=== PATIENT | female | born 1960 | race Caucasian/White ===

== ENCOUNTER 2017-06-28 08:21 | Emergency (ER) | payer BC ==
[2017-06-28] MEDS ORDERED: Ketorolac 30 MG/ML SDV IVPUSH ONE (08:22)
[2017-06-28] MEDS ORDERED: Sodium Chloride 0.9% 1,000 ML IV ONE (08:22)
[2017-06-28] MEDS ORDERED: Ondansetron 4 MG/2 ML SDV IVPUSH ONE (08:22)
--- NOTE | 2017-06-28 08:23 | EDM.PDOC ---
ED HPI GENERAL MEDICAL PROBLEM - General Stated Complaint: PAIN ON SIDE Time Seen by Provider: 06/28/17 08:23 Source of Information: Reports: Patient - History of Present Illness INITIAL COMMENTS - FREE TEXT/NARRATIVE: HISTORY AND PHYSICAL: History of present illness: [Patient presents with a chief complaint of right hip tenderness rates 20 out of 10, she is in no distress generally on hydrocodone but has been out over the last week , she has followed with Dr. micha mp who has scheduled for a steroid injection on July 01 with the orthopedist, x-ray was performed on Thursday and is on file. her hip pain is improved by weightbearing and dressed but is described as constant She has a secondary complaint of vague abdominal pain and states she is vomiting repeatedly throughout the day however she has had no vomiting episodes while here in the emergency room but her is present with her at this time No fever chills sweats no chest pain shortness breath headache dizziness or palpitation no bowel or urine symptoms Review of systems: As per history of present illness and below otherwise all systems reviewed and negative. Past medical history: As per history of present illness and as reviewed below otherwise noncontributory. Surgical history: As per history of present illness and as reviewed below otherwise noncontributory. Social history: No reported history of drug or alcohol abuse. Family history: As per history of present illness and as reviewed below otherwise noncontributory. Physical exam: HEENT: Atraumatic, normocephalic, pupils reactive, negative for conjunctival pallor or scleral icterus, mucous membranes moist, throat clear, neck supple, nontender, trachea midline. Lungs: Clear to auscultation, breath sounds equal bilaterally, chest nontender. Heart: S1S2, regular, negative for clicks, rubs, or JVD. Abdomen: Soft, nondistended, nontender. Negative for masses or hepatosplenomegaly. Negative for costovertebral tenderness. Pelvis: Stable nontender. Genitourinary: Deferred. Rectal: Deferred. Extremities: Atraumatic, negative for cords or calf pain. Neurovascular unremarkable. Neuro: Awake, alert, oriented. Cranial nerves II through XII unremarkable. Cerebellum unremarkable. Motor and sensory unremarkable throughout. Exam nonfocal. Diagnostics: [CBC CMP troponin lipase UA EKG ] Therapeutics: [1 L normal saline bolus Zofran 8 mg IV Toradol 30 mg IV Morphine 1 mg IV Hydrocodone No. 20 Phenergan ] Impression: Hip pain on right Chronic history baseline ] Definitive disposition and diagnosis as appropriate pending reevaluation and review of above. right hip Pain Score (Numeric/FACES): 10 - Related Data Allergies Allergy/AdvReac Type Severity Reaction Status Date / Time Penicillins Allergy Rash Verified 06/28/17 08:29 Home Meds: Home Meds Budesonide/Formoterol Fumarate [Symbicort 160-4.5 Mcg Inhaler] 2 puff IH BID 08/10 [History] DULoxetine [Cymbalta] 120 mg PO DAILY 06/28/17 [History] Hydrocodone/Acetaminophen [Hydrocodon-Acetaminophn 10-325] 1 tab PO BID PRN 08/10 [History] Ipratropium/Albuterol Sulfate [Iprat-Albut 0.5-3(2.5) MG/3 ML] 3 ml IH QID PRN 06/28/17 [History] Levothyroxine [Synthroid] 50 mcg PO ACBREAKFAST 06/28/17 [History] Pantoprazole Sodium [Protonix] 20 mg PO DAILY 06/28/17 [History] Promethazine [Phenergan] 25 mg PO Q4H PRN 06/28/17 [History] Rosuvastatin Calcium 20 mg PO DAILY 06/28/17 [History] risperiDONE 2 mg PO BEDTIME 06/28/17 [History] ED ROS GENERAL - Review of Systems Review Of Systems: ROS reveals no pertinent complaints other than HPI. ED EXAM, GENERAL - Physical Exam Exam: See Below Course - Vital Signs Last Recorded V/S: Last Vital Signs Temp 97.5 F 06/28/17 08:30 Pulse 65 06/28/17 08:30 Resp 20 06/28/17 08:30 BP 155/69 H 06/28/17 08:30 Pulse Ox 98 06/28/17 08:30 - Orders/Labs/Meds Orders: Active Orders 24 hr Category Date Time Status EKG Documentation Completion [RC] STAT Care 06/28/17 08:23 Active Abdomen Pelvis w Cont [CT] Stat Exams 06/28/17 08:26 Taken UA W/MICROSCOPIC [URIN] Stat Lab 06/28/17 08:42 Ordered Labs: Laboratory Tests 06/28/17 06/28/17 06/28/17 Range/Units 08:30 08:30 08:30 WBC 12.70 H (4.0-11.0) K/uL RBC 4.65 (4.30-5.90) M/uL Hgb 15.3 (12.0-16.0) g/dL Hct 42.5 (36.0-46.0) % MCV 91.4 (80.0-98.0) fL MCH 32.9 H (27.0-32.0) pg MCHC 36.0 (31.0-37.0) g/dL RDW Std Deviation 43.2 (28.0-62.0) fl RDW Coeff of Jenna 13 (11.0-15.0) % Plt Count 298 (150-400) K/uL MPV 8.70 (7.40-12.00) fL Neut % (Auto) 76.4 (48.0-80.0) % Lymph % (Auto) 13.7 L (16.0-40.0) % [place] % (Auto) 9.4 (0.0-15.0) % Eos % (Auto) 0.4 (0.0-7.0) % Baso % (Auto) 0.1 (0.0-1.5) % Neut # (Auto) 9.7 H (1.4-5.7) K/uL Lymph # (Auto) 1.7 (0.6-2.4) K/uL [place] # (Auto) 1.2 H (0.0-0.8) K/uL Eos # (Auto) 0.1 (0.0-0.7) K/uL Baso # (Auto) 0.0 (0.0-0.1) K/uL Nucleated RBC % 0.0 /100WBC Nucleated RBCs # 0 K/uL ESR 8 (0-29) mm/hr Sodium 134 L (136-145) mmol/L Potassium 3.2 L (3.5-5.1) mmol/L Chloride 97 L (98-107) mmol/L Carbon Dioxide 23.7 (21.0-32.0) mmol/L BUN 11 (7.0-18.0) mg/dL Creatinine 0.8 (0.6-1.0) mg/dL Est Cr Clr Drug Dosing 73.51 mL/min Estimated GFR (MDRD) > 60.0 ml/min Glucose 117 H (74-106) mg/dL Calcium 9.2 (8.5-10.1) mg/dL Total Bilirubin 0.7 (0.2-1.0) mg/dL AST 25 (15-37) IU/L ALT 33 (14-63) IU/L Alkaline Phosphatase 65 (46-116) U/L Troponin I < 0.050 (0.000-0.056) ng/mL C-Reactive Protein (0.00-0.90) mg/dL Total Protein 7.1 (6.4-8.2) g/dL Albumin 3.7 (3.4-5.0) g/dL Globulin 3.4 (2.0-3.5) g/dL Albumin/Globulin Ratio 1.1 L (1.3-2.8) Lipase 276 (73-393) U/L Urine Color Urine Appearance Urine pH (5.0-8.0) Ur Specific [place] (1.001-1.035) Urine Protein (NEGATIVE) mg/dL Urine Glucose (UA) (NEGATIVE) mg/dL Urine Ketones (NEGATIVE) mg/dL Urine Occult Blood (NEGATIVE) Urine Nitrite (NEGATIVE) Urine Bilirubin (NEGATIVE) Urine Ictotest Urine Urobilinogen (<2.0) EU/dL Ur Leukocyte Esterase (NEGATIVE) Urine RBC (0-2/HPF) Urine WBC (0-5/HPF) Ur Epithelial Cells (NONE-FEW) Urine Bacteria (NEGATIVE) Urine Mucus (NONE-MOD) 06/28/17 06/28/17 Range/Units 08:30 08:42 WBC (4.0-11.0) K/uL RBC (4.30-5.90) M/uL Hgb (12.0-16.0) g/dL Hct (36.0-46.0) % MCV (80.0-98.0) fL MCH (27.0-32.0) pg MCHC (31.0-37.0) g/dL RDW Std Deviation (28.0-62.0) fl RDW Coeff of Jenna (11.0-15.0) % Plt Count (150-400) K/uL MPV (7.40-12.00) fL Neut % (Auto) (48.0-80.0) % Lymph % (Auto) (16.0-40.0) % [place] % (Auto) (0.0-15.0) % Eos % (Auto) (0.0-7.0) % Baso % (Auto) (0.0-1.5) % Neut # (Auto) (1.4-5.7) K/uL Lymph # (Auto) (0.6-2.4) K/uL [place] # (Auto) (0.0-0.8) K/uL Eos # (Auto) (0.0-0.7) K/uL Baso # (Auto) (0.0-0.1) K/uL Nucleated RBC % /100WBC Nucleated RBCs # K/uL ESR (0-29) mm/hr Sodium (136-145) mmol/L Potassium (3.5-5.1) mmol/L Chloride (98-107) mmol/L Carbon Dioxide (21.0-32.0) mmol/L BUN (7.0-18.0) mg/dL Creatinine (0.6-1.0) mg/dL Est Cr Clr Drug Dosing mL/min Estimated GFR (MDRD) ml/min Glucose (74-106) mg/dL Calcium (8.5-10.1) mg/dL Total Bilirubin (0.2-1.0) mg/dL AST (15-37) IU/L ALT (14-63) IU/L Alkaline Phosphatase (46-116) U/L Troponin I (0.000-0.056) ng/mL C-Reactive Protein <0.20 (0.00-0.90) mg/dL Total Protein (6.4-8.2) g/dL Albumin (3.4-5.0) g/dL Globulin (2.0-3.5) g/dL Albumin/Globulin Ratio (1.3-2.8) Lipase (73-393) U/L Urine Color YELLOW Urine Appearance SLT CLOUDY Urine pH 7.0 (5.0-8.0) Ur Specific [place] 1.020 (1.001-1.035) Urine Protein 30 (NEGATIVE) mg/dL Urine Glucose (UA) NEGATIVE (NEGATIVE) mg/dL Urine Ketones 15 H (NEGATIVE) mg/dL Urine Occult Blood NEGATIVE (NEGATIVE) Urine Nitrite NEGATIVE (NEGATIVE) Urine Bilirubin MODERATE H (NEGATIVE) Urine Ictotest NEGATIVE Urine Urobilinogen 1.0 (<2.0) EU/dL Ur Leukocyte Esterase NEGATIVE (NEGATIVE) Urine RBC 0-1 (0-2/HPF) Urine WBC 0-2 (0-5/HPF) Ur Epithelial Cells FEW (NONE-FEW) Urine Bacteria FEW (NEGATIVE) Urine Mucus LIGHT (NONE-MOD) Meds: Medications Discontinued Medications Generic Name Dose Route Start Last Admin Trade Name Hellen PRN Reason Stop Dose Admin Sodium Chloride 1,000 mls @ 999 mls/hr 06/28/17 08:22 06/28/17 09:00 Normal Saline IV 06/28/17 09:22 999 mls/hr STAT ONE Administration Iopamidol 100 ml 06/28/17 09:56 06/28/17 09:57 Isovue Multipack-370 (76%) IVPUSH 06/28/17 09:57 100 ml ONETIME STA Administration Ketorolac Tromethamine 30 mg 06/28/17 08:22 06/28/17 09:04 Toradol IVPUSH 06/28/17 08:23 30 mg ONETIME ONE Administration Ondansetron HCl 8 mg 06/28/17 08:22 06/28/17 09:01 Zofran IVPUSH 06/28/17 08:23 8 mg ONETIME ONE Administration Departure - Departure Time of Disposition: 10:39 Disposition: Home, Self-Care 01 Condition: Good Clinical Impression: Hip pain, Abdominal pain - Discharge Information Additional Instructions: Medication as prescribed Return if symptoms persist or worsen Follow-up with orthopedist as scheduled on July 01 You have a small reducible hernia on your abdomen, follow with general surgery call for appointment for evaluation and treatment at number below [facility] Professional [address], [address] [address] my orthopedic [facility] - General Surgery Professional [address], [address] [address] The following information is given to patients seen in the emergency department who are being discharged to home. This information is to outline your options for follow-up care. We provide all patients seen in our emergency department with a follow-up referral. The need for follow-up, as well as the timing and circumstances, are variable depending upon the specifics of your emergency department visit. If you don't have a primary care physician on staff, we will provide you with a referral. We always advise you to contact your personal physician following an emergency department visit to inform them of the circumstance of the visit and for follow-up with them and/or the need for any referrals to a consulting specialist. The emergency department will also refer you to a specialist when appropriate. This referral assures that you have the opportunity for follow-up care with a specialist. All of these measure are taken in an effort to provide you with optimal care, which includes your follow-up. Under all circumstances we always encourage you to contact your private physician who remains a resource for coordinating your care. When calling for follow-up care, please make the office aware that this follow-up is from your recent emergency room visit. If for any reason you are refused follow-up, please contact the [facility] emergency department at and asked to speak to the emergency department charge nurse. - My Orders Last 24 Hours: My Active Orders 06/28/17 08:23 EKG Documentation Completion [RC] STAT 06/28/17 08:26 Abdomen Pelvis w Cont [CT] Stat 06/28/17 08:42 UA W/MICROSCOPIC [URIN] Stat - Assessment/Plan Last 24 Hours: My Active Orders 06/28/17 08:23 EKG Documentation Completion [RC] STAT 06/28/17 08:26 Abdomen Pelvis w Cont [CT] Stat 06/28/17 08:42 UA W/MICROSCOPIC [URIN] Stat
[2017-06-28 08:59] LABS: CHLORIDE,CL 97 mmol/L (98-107); SODIUM,NA 134 mmol/L (136-145)
[2017-06-28] MEDS ORDERED: Iopamidol 755 MG/ML 200 ML Multipack Bottle IVPUSH STA (09:56)
[2017-06-28] MEDS ORDERED: Morphine 4 MG/ML Syringe IVPUSH ONE (10:41)
--- NOTE | 2017-06-29 11:28 | CT ---
EXAM DATE: 06/28/17 PATIENT'S AGE: 57 Patient: EDWAR DUARTE Facility: [place], [place] Site . Site : 1960 Study: CT Abdomen/Pelvis [id number] 9:55:17 AM Ordering Physician: Doctor Rm Final Report: INDICATION: abd pain, nausea, right hip pain TECHNIQUE: Helical scans obtained through the abdomen and pelvis after administration of 100 cc of Isovue-370 intravenously. COMPARISON: None. FINDINGS: 1. Mild diffuse fatty change in the liver. The liver is prominent measuring 20 cm cephalocaudad, extending down to the right iliac crest. No focal hepatic lesions. 2. Gallbladder is surgically absent. Bile ducts are normal caliber. 3. Small ventral hernia containing fat tissue measuring 1.5 cm in diameter located 9 cm superior to the umbilicus. 4. Spleen, adrenals, pancreas and kidneys are normal. No urinary tract calculi or hydronephrosis. Bladder is unremarkable. 5. Lipomatous ileocecal valve. Normal appendix. The remainder of the bowel is unremarkable. 6. Uterus and adnexal regions are within normal limits. 7. Mild spurring in the thoracolumbar spine. No fractures or destructive bony lesions. IMPRESSION: 1. Fatty liver. 2. Small ventral hernia in the upper abdomen containing mesenteric fat. 3. Other incidental findings as mentioned above. Dictated by Hardeep Marte MD @ 06/28/2017 10:12:34 AM Dictated by: Hardeep Marte MD @ 06/28/2017 10:12:41 (Electronic Signature) Report Signed by Proxy. MAC
== END 2017-06-28 11:06 | disposition home or self-care (01) ==
LOC: MW.ED 08:21
DX: M25.551 Pain in right hip (principal); R10.9 Unspecified abdominal pain; Z88.0 Allergy status to penicillin; Z79.899 Other long term (current) drug therapy
CPT/HCPCS: 36415; 74177; 80053; 81001; 83690; 84484; 85025; 85652; 86140; 93005; 96361; 96374; 96375; 99284; J1885; J2270; J2405; J7040; Q9967; 99283

== ENCOUNTER 2017-07-23 09:32 | Day surgery (SDC) | payer BC ==
[~2017-07-23 09:32] MED LIST: Lactated Ringers 1,000 ML IV SCH; Lidocaine 2% 5 ML SDV ONE; Propofol 200 MG/20 ML SDV ONE; Sodium Chloride 0.9% 10 ML Syringe FLUSH PRN; Sodium Chloride 0.9% 2.5 ML Syringe FLUSH PRN; fentaNYL 100 MCG/2 ML SDV ONE
[2017-07-23] MEDS ORDERED: Midazolam 1 MG/ML 2 ML SDV ONE (10:35)
--- NOTE | 2017-07-23 10:35 | PCM.PREANE ---
Preanesthetic Assessment - Anesthesia/Transfusion/Family Hx Anesthesia History: Prior Anesthesia Without Reaction Family History of Anesthesia Reaction: No Transfusion History: No Prior Transfusion(s) Intubation History: Unknown - Review of Systems General: No Symptoms Pulmonary: No Symptoms Cardiovascular: No Symptoms Gastrointestinal: No Symptoms, Other (h/o colon polyps) Neurological: No Symptoms Other: Reports: None - Physical Assessment O2 Sat by Pulse Oximetry: 95 Respiratory Rate: 16 Vital Signs: Last Vital Signs Temp 36.5 C 07/23/17 09:40 Pulse 79 07/23/17 09:40 Resp 16 07/23/17 09:40 BP 140/83 07/23/17 09:40 Pulse Ox 95 07/23/17 09:40 Height: 1.68 m Weight: 82.1 kg ASA Class: 3 Mental Status: Alert & Oriented x3 Airway Class: Mallampati = 2 Dentition: Reports: Bridge (left upper (back)) Thyro-Mental Finger Breadths: 3 Mouth Opening Finger Breadths: 3 ROM/Head Extension: Full Lungs: Clear to Auscultation, Normal Respiratory Effort Cardiovascular: Regular Rate, Regular Rhythm - Allergies Allergies/Adverse Reactions: Allergies Allergy/AdvReac Type Severity Reaction Status Date / Time Penicillins Allergy Rash Verified 07/17/17 14:26 - Blood Blood Available: No - Anesthesia Plan Pre-Op Medication Ordered: None - Acknowledgements Anesthesia Type Planned: MAC Pt an Appropriate Candidate for the Planned Anesthesia: Yes Alternatives and Risks of Anesthesia Discussed w Pt/Guardian: Yes Pt/Guardian Understands and Agrees with Anesthesia Plan: Yes PreAnesthesia Questionnaire HEENT History: Reports: Other (See Below) Other HEENT History: wears glasses, has upper partial permanent retainer Cardiovascular History: Reports: High Cholesterol Respiratory History: Reports: COPD (moderate) Other Respiratory History: uses Symbicort inhaler BID Gastrointestinal History: Reports: Colon Polyp, GERD, Other (See Below) Other Gastrointestinal History: fatty liver, just diagnosed with a ventral hernia Musculoskeletal History: Reports: Back Pain, Chronic, Other (See Below) (right hip bursitis) Psychiatric History: Reports: Anxiety, Depression, Suicide Attempt Endocrine/Metabolic History: Reports: Hypothyroidism - Infectious Disease History Infectious Disease History: Reports: None - Past Surgical History GI Surgical History: Reports: Cholecystectomy, Colonoscopy Musculoskeletal Surgical History: Reports: Arthroscopic Knee (with meniscectomy) Other Musculoskeletal Surgeries/Procedures:: knee surgery , left - SUBSTANCE USE Smoking Status *Q: Current Every Day Smoker (1 ppd) Tobacco Use Within Last Twelve Months: Cigarettes Recreational Drug Use History: No - HOME MEDS Home Medications: Home Meds Budesonide/Formoterol Fumarate [Symbicort 160-4.5 Mcg Inhaler] 2 puff IH BID 08/10 [History] DULoxetine [Cymbalta] 60 mg PO BID 06/28/17 [History] Hydrocodone/Acetaminophen [Hydrocodon-Acetaminophn 10-325] 1 tab PO BID PRN 08/10 [History] Levothyroxine [Synthroid] 50 mcg PO ACBREAKFAST 06/28/17 [History] Pantoprazole Sodium [Protonix] 20 mg PO DAILY 06/28/17 [History] Rosuvastatin Calcium 20 mg PO DAILY 06/28/17 [History] risperiDONE 2 mg PO BEDTIME 06/28/17 [History] - CURRENT (IN HOUSE) MEDS Current Meds: Current Medications Lactated Ringer's (Ringers, Lactated) 1,000 mls @ 125 mls/hr IV ASDIRECTED LUIS Last Admin: 07/23/17 09:40 Dose: 125 mls/hr Sodium Chloride (Saline Flush) 10 ml FLUSH ASDIRECTED PRN PRN Reason: Keep Vein Open Sodium Chloride (Saline Flush) 2.5 ml FLUSH ASDIRECTED PRN PRN Reason: Keep Vein Open Sodium Chloride (Saline Flush) 10 ml FLUSH ASDIRECTED PRN PRN Reason: Keep Vein Open Sodium Chloride (Saline Flush) 2.5 ml FLUSH ASDIRECTED PRN PRN Reason: Keep Vein Open Discontinued Medications Fentanyl (Sublimaze) Confirm Administered Dose 100 mcg .ROUTE .STK-MED ONE Stop: 07/23/17 09:30 Lidocaine (Xylocaine-Mpf 2%) Confirm Administered Dose 5 ml .ROUTE .STK-MED ONE Stop: 07/23/17 09:30 Propofol (Diprivan 20 Ml) Confirm Administered Dose 400 mg .ROUTE .STK-MED ONE Stop: 07/23/17 09:30
[2017-07-23] MEDS ORDERED: Propofol 200 MG/20 ML SDV ONE (11:34)
--- NOTE | 2017-07-23 11:51 | PCM.PRGIU ---
Upper GI Endoscopy Procedure Intervention:: Reports: Biopsy Performed By:: Jenny Nascimento Date of Service:: 07/23/17 Indications:: Reports: Dysphagia Sedation:: Reports: IV Depth reached:: Reports: Gastric Cavity - Findings Hiatal Hernia:: Reports: Other Hiatal Hernia Comments:: Type 1 Hiatal Hernia - Interventions Cauterization:: Reports: None Foreign body removal:: Reports: None Complications:: Reports: None Cultures:: Reports: None
--- NOTE | 2017-07-23 11:53 | PCM.PRGIL ---
Lower GI Endoscopy Procedure Procedure:: Reports: Colonoscopy Procedure Comments:: Rectum to Cecum time was 6 minutes. Normal Colonoscopy. Performed By:: Jenny Nascimento Date of Service:: 07/23/17 Informed Consent Obtained?: Yes Rectodigital Exam:: Reports: Normal Exam, Normal Rectal Tone Sedation:: Reports: IV Depth Reached (Location):: Reports: Cecum Landmarks:: Reports: Cecum - Findings Rectal:: Reports: Normal Hemorrhoids:: Reports: None Condyloma:: Reports: None Colitis (Location):: Reports: None Polyps (location):: Reports: None Mass (Location):: Reports: None Stenosis (Location):: Reports: None Complications:: Reports: None Cultures:: Reports: None
--- NOTE | 2017-07-23 12:02 | PCM.POSTAN ---
POST ANESTHESIA ASSESSMENT - MENTAL STATUS Mental Status: Alert, Oriented - RESPIRATORY Respiratory Status: Respiratory Rate WNL, Airway Patent, O2 Saturation Stable - CARDIOVASCULAR CV Status: Pulse Rate WNL, Blood Pressure Stable - GASTROINTESTINAL GI Status: No Symptoms - PAIN Pain Score: 0 - POST OP HYDRATION Hydration Status: Adequate & Stable
--- NOTE | 2017-07-24 00:49 | OR ---
SURGEON: ZIA VALENTINE MD DATE OF PROCEDURE: 07/23/2017 PREOPERATIVE DIAGNOSES: Nausea and vomiting, history of colon polyps. POSTOPERATIVE DIAGNOSES: Hiatal hernia, normal colonoscopy. PROCEDURE PERFORMED: Diagnostic EGD and colonoscopy. INSTRUMENT USED: Olympus endoscope, Olympus colonoscope. EXTENT OF EXAM: To the second portion of the duodenum, to the cecum. PREPARATION: Good. LIMITATIONS: None. INDICATION FOR EXAMINATION: The patient is a 57-year-old female, who recently presented to the emergency room with epigastric pain, nausea, and vomiting. A workup was completed, that showed a small incisional hernia, but no other cause of her pain. The patient does complain of reflux. She has a history of colon polyps and is overdue for a repeat colonoscopy. We discussed the need for diagnostic EGD and colonoscopy. The patient and I discussed the procedures as well as expected perioperative course. We discussed the risks including bleeding, infection, or damage to surrounding structures including perforation. The patient verbalized understanding and wishes to proceed. PROCEDURE IN DETAIL: The patient was brought into the endoscopy suite and placed in the left lateral decubitus position. A time-out was completed verifying the patient's name, age, date of , allergies, and procedure to be performed. A bite-block was placed in the patient's mouth and monitored anesthesia care induced. Continuous oxygen was provided via nasal cannula throughout the procedure. After adequate sedation was achieved, a well lubricated endoscope was placed in the patient's mouth and advanced under direct visualization to the second portion of the duodenum. This appeared normal and a photograph was taken. The scope was then fully withdrawn while examining the color, texture, anatomy, and integrity of the mucosa of the upper GI tract. The patient's duodenum appeared to be free of pathology. The scope was then brought into the stomach and a photograph was taken of the pylorus. This appeared normal. The scope was then retroflexed and then noted the patient to have a small to moderate-sized hiatal hernia. A photograph was taken of this. The remainder of the gastric mucosa appeared normal. Biopsies were taken of the gastric antrum, body, and fundus and sent for H. pylori testing and histologic review. The scope was then brought into the distal esophagus. A photograph was taken of the hiatal hernia sac. A photograph was then taken again of the Z-line. The distal esophageal mucosa was free of inflammation or any evidence of ulceration or dysplasia. The remainder of the esophagus was normal. The scope was removed from the patient and this portion of procedure terminated. A digital rectal exam was performed. This exam was within normal limits. A well lubricated colonoscope was inserted in the rectum and advanced under direct visualization to the level of the cecum. The cecum was identified by both visual and anatomic landmarks. A photograph was taken of the cecal cap as well as with the scope in a retroflexed position. The scope was then fully withdrawn while examining the color, texture, anatomy, and integrity of the mucosa from the cecum to the anal canal. The patient was found to have normal colonic mucosa. The scope was brought into the rectum and retroflexed to allow visualization of the anal canal opening and a photograph was taken. This appeared normal. The scope was then straightened out and withdrawn from the patient. The cecum to anus time was 6 minutes. The patient tolerated the procedures well and was transferred to the PACU in stable condition. ENDOSCOPIC DIAGNOSIS: Hiatal hernia. RECOMMENDATIONS: We will follow up with the patient in clinic in 2 weeks. NEVAEH CASTELLON /[id number]
== END 2017-07-23 12:15 | disposition home or self-care (01) ==
LOC: MW.SDS 09:32
PROVIDERS: ATTEND Surgery
DX: R10.13 Epigastric pain (principal); K58.2 Mixed irritable bowel syndrome; K43.9 Ventral hernia without obstruction or gangrene; K44.9 Diaphragmatic hernia without obstruction or gangrene; K76.0 Fatty (change of) liver, not elsewhere classified; K21.9 Gastro-esophageal reflux disease without esophagitis; J44.9 Chronic obstructive pulmonary disease, unspecified; E78.00 Pure hypercholesterolemia, unspecified; E87.6 Hypokalemia; E03.9 Hypothyroidism, unspecified; G89.29 Other chronic pain; M51.36 Other intervertebral disc degeneration, lumbar region; F41.8 Other specified anxiety disorders; T14.91XA Suicide attempt, initial encounter; F17.210 Nicotine dependence, cigarettes, uncomplicated; Z79.899 Other long term (current) drug therapy; Z98.890 Other specified postprocedural states; Z86.010 Personal history of colon polyps
CPT/HCPCS: J2250; J2704; J3010; J7120

== ENCOUNTER 2019-04-04 10:29 | Observation (INO) | payer BC ==
[2019-04-04] MEDS ORDERED: Sodium Chloride 0.9% 10 ML Syringe FLUSH PRN (10:54)
[2019-04-04] MEDS ORDERED: Sodium Chloride 0.9% 2.5 ML Syringe FLUSH PRN (10:54)
[2019-04-04] MEDS ORDERED: Sodium Chloride 0.9% 10 ML SDV IV PRN (10:54)
[2019-04-04] MEDS ORDERED: Meclizine 25 MG Tab PO ONE (10:56)
--- NOTE | 2019-04-04 10:56 | EDM.PDOC ---
ED HPI GENERAL MEDICAL PROBLEM - General Chief Complaint: Neurological Problem Stated Complaint: DIZZY/SICK Time Seen by Provider: 04/04/19 10:52 Source of Information: Reports: Patient History Limitations: Reports: No Limitations - History of Present Illness INITIAL COMMENTS - FREE TEXT/NARRATIVE: She is a 59-year-old female who has numerous vague complaints. Patient is complaining she is having trouble speaking but cannot specify when this started. Patient has her eyes closed and is complained to me that the room is spinning. She denied this earlier to nursing staff. She denies any focal weakness. She is complaining of head pressure which she rates as 8 out of 10 intensity. Patient is feeling nauseous but has had no vomiting. She denies having previously similar symptoms. She denies drinking alcohol though her breath has a odor similar to alcohol. Duration: Day(s): (4) Location: Reports: Head Quality: Reports: Ache, Throbbing Severity: Moderate Improves with: Reports: None Worsens with: Reports: Eating Associated Symptoms: Reports: Malaise, Nausea/Vomiting. Denies: Confusion, Chest Pain, Cough, Shortness of Breath - Related Data Allergies Allergy/AdvReac Type Severity Reaction Status Date / Time Penicillins Allergy Rash Verified 04/04/19 13:47 Home Meds: Home Meds Budesonide/Formoterol Fumarate [Symbicort 160-4.5 Mcg Inhaler] 2 puff IH BID 08/10 [History] DULoxetine [Cymbalta] 60 mg PO BID 06/28/17 [History] Hydrocodone/Acetaminophen [Hydrocodon-Acetaminophn 10-325] 1 tab PO BID PRN 08/10 [History] Levothyroxine [Synthroid] 50 mcg PO ACBREAKFAST 06/28/17 [History] Pantoprazole Sodium [Protonix] 20 mg PO DAILY 06/28/17 [History] Rosuvastatin Calcium 20 mg PO DAILY 06/28/17 [History] risperiDONE 2 mg PO BEDTIME 06/28/17 [History] Pregabalin [Lyrica] 1 tab PO BID 04/04/19 [History] metFORMIN [Glucophage XR] 750 mg PO DAILY 04/04/19 [History] Meclizine [Antivert] 25 mg PO DAILY PRN #15 tab 04/05/19 [Rx] Ondansetron [Zofran ODT] 4 mg PO Q6H PRN #15 tab.dis 04/05/19 [Rx] Past Medical History HEENT History: Reports: Other (See Below) Other HEENT History: wears glasses, has upper partial permanent retainer Cardiovascular History: Reports: High Cholesterol Respiratory History: Reports: COPD (moderate) Other Respiratory History: uses Symbicort inhaler BID Gastrointestinal History: Reports: Colon Polyp, GERD, Other (See Below) Other Gastrointestinal History: fatty liver, just diagnosed with a ventral hernia Musculoskeletal History: Reports: Back Pain, Chronic, Other (See Below) (right hip bursitis) Psychiatric History: Reports: Anxiety, Depression, Suicide Attempt Endocrine/Metabolic History: Reports: Hypothyroidism - Infectious Disease History Infectious Disease History: Reports: None - Past Surgical History GI Surgical History: Reports: Cholecystectomy Social & Family History - Family History Family Medical History: Noncontributory ED ROS GENERAL - Review of Systems Review Of Systems: Comprehensive ROS is negative, except as noted in HPI. ED EXAM, NEURO - Physical Exam Exam: See Below General Appearance: Alert, Other (Patient at times is listless) Head Exam: Atraumatic, Normocephalic Neck: Normal Inspection, Supple, Non-Tender, Full Range of Motion Respiratory/Chest: No Respiratory Distress, Lungs Clear, Normal Breath Sounds Cardiovascular: Regular Rate, Rhythm, No Edema, No JVD. No: JVD GI/Abdominal: Normal Bowel Sounds, Soft, Non-Tender, No Organomegaly Neurological: Alert, CN II-XII Intact Extremities: Normal Inspection Psychiatric: Depressed Mood Skin Exam: Warm, Dry, Intact Course - Vital Signs Text/Narrative:: Patient CT of her head and lab work are unremarkable. Patient is presenting she has having vertigo I am concerned she might have a posterior cerebellar stroke. Patient will be admitted and have an MRI scan prior to her being discharged. informs me she has had this several episodes where she is not able to stand is uncertain whether this is vertiginous or possibly due to an arrhythmia. Hospitalist is aware and they will continue her work-up and she will be admitted to telemetry. Last Recorded V/S: Last Vital Signs Temp 36.9 C 04/05/19 08:00 Pulse 92 04/05/19 08:00 Resp 16 04/05/19 08:00 BP 128/75 04/05/19 08:00 Pulse Ox 95 04/05/19 08:00 - Orders/Labs/Meds Labs: Laboratory Tests 04/04/19 04/04/19 04/04/19 Range/Units 10:58 10:58 11:42 WBC 12.71 H (4.0-11.0) K/uL RBC 5.16 (4.30-5.90) M/uL Hgb 16.4 H (12.0-16.0) g/dL Hct 46.2 H (36.0-46.0) % MCV 89.5 (80.0-98.0) fL MCH 31.8 (27.0-32.0) pg MCHC 35.5 (31.0-37.0) g/dL RDW Std Deviation 44.3 (28.0-62.0) fl RDW Coeff of Jenna 14 (11.0-15.0) % Plt Count 411 H (150-400) K/uL MPV 9.10 (7.40-12.00) fL Neut % (Auto) 66.9 (48.0-80.0) % Lymph % (Auto) 23.4 (16.0-40.0) % [place] % (Auto) 7.4 (0.0-15.0) % Eos % (Auto) 2.0 (0.0-7.0) % Baso % (Auto) 0.3 (0.0-1.5) % Neut # (Auto) 8.5 H (1.4-5.7) K/uL Lymph # (Auto) 3.0 H (0.6-2.4) K/uL [place] # (Auto) 0.9 H (0.0-0.8) K/uL Eos # (Auto) 0.3 (0.0-0.7) K/uL Baso # (Auto) 0.0 (0.0-0.1) K/uL Nucleated RBC % 0.0 /100WBC Nucleated RBCs # 0 K/uL INR 0.99 APTT 28.4 (18.6-31.3) SEC Sodium 136 (136-145) mmol/L Potassium 4.1 (3.5-5.1) mmol/L Chloride 100 (98-107) mmol/L Carbon Dioxide 26.9 (21.0-32.0) mmol/L BUN 20 H (7.0-18.0) mg/dL Creatinine 0.7 (0.6-1.0) mg/dL Est Cr Clr Drug Dosing 82.01 mL/min Estimated GFR (MDRD) > 60.0 ml/min Glucose 102 (74-106) mg/dL Calcium 9.7 (8.5-10.1) mg/dL Total Bilirubin 0.3 (0.2-1.0) mg/dL AST 16 (15-37) IU/L ALT 30 (14-63) IU/L Alkaline Phosphatase 103 (46-116) U/L Troponin I < 0.050 (0.000-0.056) ng/mL Total Protein 7.5 (6.4-8.2) g/dL Albumin 3.8 (3.4-5.0) g/dL Globulin 3.7 (2.6-4.0) g/dL Albumin/Globulin Ratio 1.0 (0.9-1.6) TSH 3rd Generation 2.70 (0.36-3.74) uIU/mL Ethyl Alcohol <3 mg/dL Meds: Medications Discontinued Medications Generic Name Dose Route Start Last Admin Trade Name Freq PRN Reason Stop Dose Admin Acetaminophen 650 mg 04/04/19 13:07 Tylenol PO Q4H PRN Pain (Mild 1-3)/fever Albuterol 2.5 mg 04/04/19 13:07 Proventil Neb Soln NEB Q2H PRN Shortness Of Breath/wheezing Enoxaparin Sodium 40 mg 04/04/19 13:15 04/04/19 13:50 Lovenox SUBCUT 40 mg Q24H LUIS Administration Gadobenate Dimeglumine 20 ml 04/04/19 14:32 04/04/19 16:11 Multihance IVPUSH 04/04/19 14:33 Not Given ONETIME STA Sodium Chloride 1,000 mls @ 150 mls/hr 04/04/19 13:15 04/04/19 21:13 Normal Saline IV 04/05/19 19:54 150 mls/hr CONTINUOUS LUIS Administration Ibuprofen 600 mg 04/04/19 13:07 Motrin PO Q6H PRN Pain (mild 1-3) Meclizine HCl 25 mg 04/04/19 10:56 02/10/20 11:09 Antivert PO 04/04/19 10:57 25 mg ONETIME ONE Administration Nicotine 21 mg 04/04/19 13:15 04/04/19 13:48 Habitrol TRDERM 21 mg DAILY LUIS Administration Ondansetron HCl 4 mg 04/04/19 13:07 Zofran Odt PO Q4H PRN nausea, able to take PO Ondansetron HCl 4 mg 04/04/19 13:07 04/04/19 15:12 Zofran IVPUSH 4 mg Q4H PRN Administration Nausea Budesonide/ 0 each 04/04/19 21:00 04/04/19 21:16 Formoterol 160-4.5 INH Not Given Mcg/Puff 6 Gm BID LUIS Inhaler Duloxetine 60 Mg Cap 1 each 04/04/19 21:00 04/04/19 21:16 PO 1 each BID LUIS Administration Levothyroxine 50 Mcg 1 each 04/05/19 07:30 04/05/19 07:02 Tab PO Not Given ACBREAKFAST LUIS Pantoprazole Sodium 1 each 04/05/19 09:00 [Protonix] 20 Mg PO DAILY LUIS Risperidone 2 Mg Tab 1 each 04/04/19 21:00 04/04/19 21:15 PO 1 each BEDTIME LUIS Administration Rosuvastatin 20 Mg 1 each 04/05/19 09:00 Tab PO DAILY LUIS Sodium Chloride 10 ml 04/04/19 10:54 04/04/19 11:09 Saline Flush FLUSH 10 ml ASDIRECTED PRN Administration Keep Vein Open Sodium Chloride 2.5 ml 04/04/19 10:54 04/04/19 11:09 Saline Flush FLUSH 2.5 ml ASDIRECTED PRN Administration Keep Vein Open Sodium Chloride 10 ml 04/04/19 10:54 Normal Saline IV ASDIRECTED PRN IV Use Temazepam 15 mg 04/04/19 18:17 Restoril PO BEDTIME PRN Insomnia Departure - Departure Time of Disposition: 12:30 ( admitted 04/04/2019) Disposition: Refer to Observation Condition: Good Clinical Impression: Vertigo, Near syncope, CVA (cerebral vascular accident) - Discharge Information Sepsis Event Note - Evaluation Sepsis Screening Result: No Definite Risk - Focused Exam Date Exam was Performed: 04/05/19 Time Exam was Performed: 13:00
--- NOTE | 2019-04-04 11:03 | CT ---
INDICATION: Stroke code. COMPARISON: None. TECHNIQUE: CT of the head stroke protocol without IV contrast. Coronal and sagittal reconstructions are provided. FINDINGS: No intracranial hemorrhage, mass effect, or evidence of acute infarct. No midline shift. No abnormal extra-axial fluid collections. Normal caliber ventricular system. Orbits and extraocular muscles are symmetric. Paranasal sinuses and mastoid air cells are clear. No acute fracture. Soft tissues are unremarkable. IMPRESSION: : No acute intracranial findings. Please note that all CT scans at this facility use dose modulation, iterative reconstruction, and/or weight-based dosing when appropriate to reduce radiation dose to as low as reasonably achievable. Dictated by Mariya Valles MD @ Apr 04 2019 10:58AM Signed by Dr. Mariya Valles @ Apr 04 2019 11:02AM
[2019-04-04 12:21] LABS: BLOOD UREA NITROGEN,BUN 20 mg/dL (7.0-18.0); CARBON DIOXIDE,CO2 26.9 mmol/L (21.0-32.0); CHLORIDE,CL 100 mmol/L (98-107); GLUCOSE RANDOM 102 mg/dL (74-106); POTASSIUM,K 4.1 mmol/L (3.5-5.1); SODIUM,NA 136 mmol/L (136-145)
[2019-04-04] MEDS ORDERED: Ondansetron 4 MG Tab.DIS PO PRN (13:07)
[2019-04-04] MEDS ORDERED: Albuterol 0.083% 2.5 MG/3 ML Neb Soln NEB PRN (13:07)
[2019-04-04] MEDS ORDERED: Acetaminophen 325 MG Tab PO PRN (13:07)
[2019-04-04] MEDS ORDERED: Ondansetron 4 MG/2 ML SDV IVPUSH PRN (13:07)
[2019-04-04] MEDS ORDERED: Ibuprofen 600 MG Tab PO PRN (13:07)
[2019-04-04] MEDS ORDERED: Enoxaparin 40 MG/0.4 ML Syringe SUBCUT SCH (13:15)
[2019-04-04] MEDS ORDERED: Nicotine 21 MG/24 Hr Patch TRDERM SCH (13:15)
[2019-04-04] MEDS: Sodium Chloride 0.9% 1,000 ML IV SCH ×2 (13:26→21:13)
--- NOTE | 2019-04-04 13:28 | PCM.HP.2 ---
Addendum entered and electronically signed by David Kevin MD 04/04 15:47: UPDATE: PATIENT CHANGED HER MIND AND WOULD LIKE TO STAY OVERNIGHT. I SPOKE WITH PATIENT AND INFORMED HER THAT SHE NEEDS TO MAKE UP HER MIND IF SHE IS STAYING OR LEAVING. SHE HAS DECIDED TO STAY. Addendum entered and electronically signed by David Kevin MD 04/04 15:33: Discharge Summary: Patient left AMA few hours later. She was not able to tolerate full length of MRI. MRI Brain did not show stroke. Neck MRA unable to get since patient did not tolerate full length of imaging. She decided to leave AMA after I spoke with her directly. Original Note: <David Kevin - Last Filed: 04/04/19 14:02> H&P History of Present Illness - General Date of Service: 04/04/19 Admit Problem/Dx: Admission Diagnosis/Problem Admission Diagnosis/Problem Vertigo - History of Present Illness Initial Comments - Free Text/Narative: 59 y/o female with PMH hypothyroidism, depression, prediabetes who presented to the ER complaining of numbness around her lips, nausea. Stroke code was called but CT head negative. No other neurological deficits. When I evaluated, patient stated that she has been feeling nauseous for the past 3-4 days. Denies feeling dizzy, however, per ER she had positive horizontal nystagmus. Son states that she has not been herself. Having her eyes closed and sleeping more than usual. In addition, she endorses some numbness around her lips. No resolved. Denies fevers, headaches. No vomiting, abdominal pain, dyspnea, dysuria, diarrhea. She does smoke 1 ppd. Occasional alcohol. No recent sick contacts. State she has not eaten due to nausea. Feels hungry and would like to smoke. No history of migraines. - Related Data Allergies/Adverse Reactions: Allergies Allergy/AdvReac Type Severity Reaction Status Date / Time Penicillins Allergy Rash Verified 04/04/19 13:47 Home Medications: Home Meds Budesonide/Formoterol Fumarate [Symbicort 160-4.5 Mcg Inhaler] 2 puff IH BID 08/10 [History] DULoxetine [Cymbalta] 60 mg PO BID 06/28/17 [History] Hydrocodone/Acetaminophen [Hydrocodon-Acetaminophn 10-325] 1 tab PO BID PRN 08/10 [History] Levothyroxine [Synthroid] 50 mcg PO ACBREAKFAST 06/28/17 [History] Pantoprazole Sodium [Protonix] 20 mg PO DAILY 06/28/17 [History] Rosuvastatin Calcium 20 mg PO DAILY 06/28/17 [History] risperiDONE 2 mg PO BEDTIME 06/28/17 [History] Pregabalin [Lyrica] 1 tab PO BID 04/04/19 [History] metFORMIN [Glucophage XR] 750 mg PO DAILY 04/04/19 [History] Meclizine [Antivert] 25 mg PO DAILY PRN #15 tab 04/05/19 [Rx] Ondansetron [Zofran ODT] 4 mg PO Q6H PRN #15 tab.dis 04/05/19 [Rx] Past Medical History HEENT History: Reports: Other (See Below) Other HEENT History: wears glasses, has upper partial permanent retainer Cardiovascular History: Reports: High Cholesterol Respiratory History: Reports: COPD Other Respiratory History: uses Symbicort inhaler BID Gastrointestinal History: Reports: Colon Polyp, GERD, Other (See Below) Other Gastrointestinal History: fatty liver, just diagnosed with a ventral hernia Genitourinary History: Reports: None EGG PROCESSOR History: Reports: None Musculoskeletal History: Reports: Back Pain, Chronic, Other (See Below) Neurological History: Reports: None Psychiatric History: Reports: Anxiety, Depression, Suicide Attempt Endocrine/Metabolic History: Reports: Hypothyroidism Hematologic History: Reports: None Immunologic History: Reports: None Oncologic (Cancer) History: Reports: None Dermatologic History: Reports: None - Infectious Disease History Infectious Disease History: Reports: None - Past Surgical History Head Surgeries/Procedures: Reports: None HEENT Surgical History: Reports: None Cardiovascular Surgical History: Reports: None Respiratory Surgical History: Reports: None GI Surgical History: Reports: Cholecystectomy Female Surgical History: Reports: None Endocrine Surgical History: Reports: None Neurological Surgical History: Reports: None Musculoskeletal Surgical History: Reports: None Oncologic Surgical History: Reports: None Dermatological Surgical History: Reports: None Social & Family History - Family History Family Medical History: Noncontributory - Tobacco Use Smoking Status *Q: Current Every Day Smoker Years of Tobacco use: 45 Packs/Tins Daily: 1.5 - Caffeine Use Caffeine Use: Reports: Coffee, Soda - Recreational Drug Use Recreational Drug Use: No H&P Review of Systems - Review of Systems: Review Of Systems: Comprehensive ROS is negative, except as noted in HPI. Exam - Exam Exam: See Below - Vital Signs Vital Signs: Last Vital Signs Temp 35.3 C 04/04/19 10:39 Pulse 66 04/04/19 12:25 Resp 17 04/04/19 12:25 BP 144/89 H 04/04/19 12:25 Pulse Ox 93 L 04/04/19 12:25 Weight: 90.718 kg - Exam General: Alert, Oriented, Cooperative HEENT: Conjunctiva Clear, Hearing Intact, Posterior Pharynx Clear, Pupils Equal , Pupils Reactive. No: Mucosa Moist & [place] Neck: Supple, Full Range of Motion Lungs: Clear to Auscultation, Normal Respiratory Effort. No: Crackles, Wheezing Cardiovascular: Regular Rate, Regular Rhythm GI/Abdominal Exam: Normal Bowel Sounds, Soft, Non-Tender, No Distention Back Exam: Vertebral Tenderness Extremities: Normal Inspection, No Pedal Edema Skin: Warm, Dry Neurological: Cranial Nerves Intact Neuro Extensive - Mental Status: Alert, Oriented x3 Neuro Extensive - Motor, Sensory, Reflexes: CN II-XII Intact - Patient Data Lab Results Last 24 hrs: Laboratory Results - last 24 hr 04/04/19 04/04/19 04/04/19 Range/Units 10:58 10:58 11:42 WBC 12.71 H (4.0-11.0) K/uL RBC 5.16 (4.30-5.90) M/uL Hgb 16.4 H (12.0-16.0) g/dL Hct 46.2 H (36.0-46.0) % MCV 89.5 (80.0-98.0) fL MCH 31.8 (27.0-32.0) pg MCHC 35.5 (31.0-37.0) g/dL RDW Std Deviation 44.3 (28.0-62.0) fl RDW Coeff of Jenna 14 (11.0-15.0) % Plt Count 411 H (150-400) K/uL MPV 9.10 (7.40-12.00) fL Neut % (Auto) 66.9 (48.0-80.0) % Lymph % (Auto) 23.4 (16.0-40.0) % [place] % (Auto) 7.4 (0.0-15.0) % Eos % (Auto) 2.0 (0.0-7.0) % Baso % (Auto) 0.3 (0.0-1.5) % Neut # (Auto) 8.5 H (1.4-5.7) K/uL Lymph # (Auto) 3.0 H (0.6-2.4) K/uL [place] # (Auto) 0.9 H (0.0-0.8) K/uL Eos # (Auto) 0.3 (0.0-0.7) K/uL Baso # (Auto) 0.0 (0.0-0.1) K/uL Nucleated RBC % 0.0 /100WBC Nucleated RBCs # 0 K/uL INR 0.99 APTT 28.4 (18.6-31.3) SEC Sodium 136 (136-145) mmol/L Potassium 4.1 (3.5-5.1) mmol/L Chloride 100 (98-107) mmol/L Carbon Dioxide 26.9 (21.0-32.0) mmol/L BUN 20 H (7.0-18.0) mg/dL Creatinine 0.7 (0.6-1.0) mg/dL Est Cr Clr Drug Dosing 82.01 mL/min Estimated GFR (MDRD) > 60.0 ml/min Glucose 102 (74-106) mg/dL Calcium 9.7 (8.5-10.1) mg/dL Total Bilirubin 0.3 (0.2-1.0) mg/dL AST 16 (15-37) IU/L ALT 30 (14-63) IU/L Alkaline Phosphatase 103 (46-116) U/L Troponin I < 0.050 (0.000-0.056) ng/mL Total Protein 7.5 (6.4-8.2) g/dL Albumin 3.8 (3.4-5.0) g/dL Globulin 3.7 (2.6-4.0) g/dL Albumin/Globulin Ratio 1.0 (0.9-1.6) TSH 3rd Generation 2.70 (0.36-3.74) uIU/mL Ethyl Alcohol <3 mg/dL Result Diagrams: 04/04/19 10:58 04/04/19 11:42 Sepsis Event Note - Evaluation Sepsis Screening Result: No Definite Risk - Focused Exam Vital Signs: Vital Signs Temp Pulse Resp BP Pulse Ox 04/04/19 12:25 66 17 144/89 H 93 L 04/04/19 12:15 69 18 135/85 97 04/04/19 11:45 68 120/80 98 04/04/19 10:39 35.3 C 100 18 141/83 H 100 Date Exam was Performed: 04/04/19 Time Exam was Performed: 14:02 Problem List Initiated/Reviewed/Updated: Yes Orders Last 24hrs: Active Orders 24 hr Category Date Time Status Admission Status [Patient Status] [ADT] Stat ADT 04/04/19 12:50 Active Assess Neurological Status [RC] Q8HR Care 04/04/19 10:54 Active Bedrest [RC] ASDIRECTED Care 04/04/19 10:54 Active Blood Glucose Check, Bedside [RC] ONETIME Care 04/04/19 10:54 Active Blood Glucose Check, Bedside [RC] TIDMEALS Care 04/04/19 13:07 Active Cardiac Monitoring [RC] . DIRECTED Care 04/04/19 10:54 Active EKG 12 Lead [EKG Documentation Completion] [RC] ROUTINE Care 04/04/19 10:51 Active EKG Documentation Completion [RC] STAT Care 04/04/19 10:54 Active Height and Weight [RC] UPON Care 04/04/19 10:54 Active Initiate Acute Stroke Protocol [RC] STAT Care 04/04/19 10:54 Active Intake and Output [RC] QSHIFT Care 04/04/19 13:07 Active NIH Stroke Scale [RC] ASDIRECTED Care 04/04/19 10:54 Active Nursing Bedside Swallow Screen [RC] ASDIRECTED Care 04/04/19 10:54 Active Oxygen Therapy [RC] ASDIRECTED Care 04/04/19 10:54 Active Oxygen Therapy [RC] PRN Care 04/04/19 13:07 Active RT Aerosol Therapy [RC] ASDIRECTED Care 04/04/19 13:09 Active Stroke Education, General [RC] Click to Edit Care 04/04/19 10:54 Active Up With Assistance [RC] ASDIRECTED Care 04/04/19 13:07 Active VTE/DVT Education [RC] PER UNIT ROUTINE Care 04/04/19 13:07 Active Vital Signs [RC] Q4H Care 04/04/19 13:07 Active PT Evaluation and Treatment [CONS] Routine Cons 04/04/19 13:07 Active Regular Diet [DIET] Diet 04/04/19 Lunch Active Ang Head w Cont [MR] Urgent Exams 04/04/19 13:13 Ordered Ang Neck w Cont [MR] Urgent Exams 04/04/19 13:13 Ordered Brain w wo Cont [MR] Urgent Exams 04/04/19 13:13 Ordered BASIC METABOLIC PANEL,BMP [CHEM] AM Lab 04/05/19 05:11 Ordered CBC WITH AUTO DIFF [HEME] AM Lab 04/05/19 05:11 Ordered UA RFX SHLOMO AND CULT IF INDIC [URIN] Routine Lab 04/04/19 13:25 Ordered Acetaminophen [Tylenol] Med 04/04/19 13:07 Active 650 mg PO Q4H PRN Albuterol [Proventil Neb Soln] Med 04/04/19 13:07 Active 2.5 mg NEB Q2H PRN Enoxaparin [Lovenox] Med 04/04/19 13:15 Active 40 mg SUBCUT Q24H Ibuprofen [Motrin] Med 04/04/19 13:07 Active 600 mg PO Q6H PRN Nicotine [Habitrol] Med 04/04/19 13:15 Active 21 mg TRDERM DAILY Ondansetron [Zofran ODT] Med 04/04/19 13:07 Active 4 mg PO Q4H PRN Ondansetron [Zofran] Med 04/04/19 13:07 Active 4 mg IVPUSH Q4H PRN Sodium Chloride 0.9% [Normal Saline] 1,000 ml Med 04/04/19 13:15 Active IV CONTINUOUS Sodium Chloride 0.9% [Saline Flush] Med 04/04/19 10:54 Active 10 ml FLUSH ASDIRECTED PRN Sodium Chloride 0.9% [Saline Flush] Med 04/04/19 10:54 Active 2.5 ml FLUSH ASDIRECTED PRN Peripheral IV Insertion Adult [OM.PC] Stat Oth 04/04/19 10:54 Ordered Peripheral IV Insertion Adult [OM.PC] Stat Oth 04/04/19 10:54 Ordered Resuscitation Status Stat Resus Stat 04/04/19 10:54 Ordered Medication Orders Acetaminophen (Tylenol) 650 mg PO Q4H PRN PRN Reason: Pain (Mild 1-3)/fever Albuterol (Proventil Neb Soln) 2.5 mg NEB Q2H PRN PRN Reason: Shortness Of Breath/wheezing Enoxaparin Sodium (Lovenox) 40 mg SUBCUT Q24H LUIS Sodium Chloride (Normal Saline) 1,000 mls @ 150 mls/hr IV CONTINUOUS LUIS Stop: 04/05/19 19:54 Ibuprofen (Motrin) 600 mg PO Q6H PRN PRN Reason: Pain (mild 1-3) Nicotine (Habitrol) 21 mg TRDERM DAILY LUIS Ondansetron HCl (Zofran Odt) 4 mg PO Q4H PRN PRN Reason: nausea, able to take PO Ondansetron HCl (Zofran) 4 mg IVPUSH Q4H PRN PRN Reason: Nausea Sodium Chloride (Saline Flush) 10 ml FLUSH ASDIRECTED PRN PRN Reason: Keep Vein Open Last Admin: 04/04/19 11:09 Dose: 10 ml Sodium Chloride (Saline Flush) 2.5 ml FLUSH ASDIRECTED PRN PRN Reason: Keep Vein Open Last Admin: 04/04/19 11:09 Dose: 2.5 ml Assessment/Plan Comment:: A: 1. Nausea 2. facial numbness 3. PMH dyslipidemia, hypothyroidism, tobacco abuse P: 1. facial numbness- not sure about etiology. Will check for influenza and get a UA. In addition, will get MRI brain, neck to further evaluate for any ischemic etiology due to suspected vertigo symptoms. Added Zofran PRN for nausea. Will start maintenance fluids NS 150 ml/hr. Regular diet as tolerated. Will get PT for vestibular/vertigo evaluation and treatment. 2. PMH hypothyroidism, prediabetes, chronic pain- will continue home medications. dispo: likely dc tomorrow. <Мария Mckeon - Last Filed: 04/05/19 20:15> H&P History of Present Illness - General Admit Problem/Dx: Admission Diagnosis/Problem Admission Diagnosis/Problem Vertigo Exam - Vital Signs Vital Signs: Last Vital Signs Temp 36.9 C 04/05/19 08:00 Pulse 92 02/11/20 08:00 Resp 16 04/05/19 08:00 BP 128/75 04/05/19 08:00 Pulse Ox 95 04/05/19 08:00 - Patient Data Lab Results Last 24 hrs: Laboratory Results - last 24 hr 04/05/19 04/05/19 04/05/19 Range/Units 06:15 06:15 06:40 WBC 12.77 H (4.0-11.0) K/uL RBC 5.04 (4.30-5.90) M/uL Hgb 15.5 (12.0-16.0) g/dL Hct 46.6 H (36.0-46.0) % MCV 92.5 (80.0-98.0) fL MCH 30.8 (27.0-32.0) pg MCHC 33.3 (31.0-37.0) g/dL RDW Std Deviation 46.4 (28.0-62.0) fl RDW Coeff of Jenna 14 (11.0-15.0) % Plt Count 400 (150-400) K/uL MPV 9.00 (7.40-12.00) fL Neut % (Auto) 74.6 (48.0-80.0) % Lymph % (Auto) 17.2 (16.0-40.0) % [place] % (Auto) 6.5 (0.0-15.0) % Eos % (Auto) 1.5 (0.0-7.0) % Baso % (Auto) 0.2 (0.0-1.5) % Neut # (Auto) 9.5 H (1.4-5.7) K/uL Lymph # (Auto) 2.2 (0.6-2.4) K/uL [place] # (Auto) 0.8 (0.0-0.8) K/uL Eos # (Auto) 0.2 (0.0-0.7) K/uL Baso # (Auto) 0.0 (0.0-0.1) K/uL Nucleated RBC % 0.0 /100WBC Nucleated RBCs # 0 K/uL Sodium 146 H (136-145) mmol/L Potassium 4.3 (3.5-5.1) mmol/L Chloride 108 H (98-107) mmol/L Carbon Dioxide 29.1 (21.0-32.0) mmol/L BUN 16 (7.0-18.0) mg/dL Creatinine 0.8 (0.6-1.0) mg/dL Est Cr Clr Drug Dosing 71.76 mL/min Estimated GFR (MDRD) > 60.0 ml/min Glucose 102 (74-106) mg/dL POC Glucose 121 H (60-110) mg/dL Calcium 9.3 (8.5-10.1) mg/dL Result Diagrams: 04/05/19 06:15 04/05/19 06:15 Shlomo Results Last 24 hrs: Microbiology 04/04/19 15:09 Influenza Type A Antigen Screen - Final Nasopharyngeal Swab NEGATIVE INFLUENZA A VIRUS AG REFERENCE RANGE: NEGATIVE Influenza Type B Antigen Screen - Final NEGATIVE INFLUENZA B VIRUS AG REFERENCE RANGE: NEGATIVE Orders Last 24hrs: Active Orders 24 hr Category Date Time Status Ready for Discharge [RC] PER UNIT ROUTINE Care 04/05/19 08:22 Active Assessment/Plan Comment:: I have performed History and physical of this patient, i agree with the residents note unless specified in my note
[2019-04-04] MEDS ORDERED: Gadobenate Dimeglumine 529 MG/ML 20 ML SDV IVPUSH STA (14:32)
--- NOTE | 2019-04-04 15:22 | MR ---
MR angiogram of brain Technique: [id number] MR angiogram study was obtained centered to the [place]. Multiple MIP images were obtained in multiple projections. Findings: Distal internal carotid arteries are patent. Basilar artery is patent. Both posterior cerebral arteries appear patent. Middle cerebral arteries and anterior cerebral arteries are patent. MIP images shows some narrowing of the proximal anterior cerebral which is felt to be artifact from motion. Small size of the right A1 segment is seen and is thought to be developmental. Middle cerebral arteries are patent. No focal stenosis is otherwise seen. No discrete aneurysm is seen. Impression: 1. Small size of the right A1 segment which is thought to be developmental. 2. Slight motion artifact. 3. No additional abnormality is identified on MR angiogram study of the brain. Diagnostic code #2 This report was dictated in [place] Standard Time
[2019-04-04] MEDS ORDERED: Temazepam 15 MG Cap PO PRN (18:17)
[2019-04-04] MEDS ORDERED: Budesonide/Formoterol 160-4.5 MCG/Puff 6 GM Inhaler INH SCH (21:00)
[2019-04-04] MEDS ORDERED: DULoxetine 60 MG Cap PO SCH (21:00)
[2019-04-05] MEDS: Levothyroxine 50 MCG Tab PO SCH ×2 (06:16→07:02)
[2019-04-05 06:44] LABS: BLOOD UREA NITROGEN,BUN 16 mg/dL (7.0-18.0); CARBON DIOXIDE,CO2 29.1 mmol/L (21.0-32.0); CHLORIDE,CL 108 mmol/L (98-107); GLUCOSE RANDOM 102 mg/dL (74-106); POTASSIUM,K 4.3 mmol/L (3.5-5.1); SODIUM,NA 146 mmol/L (136-145)
--- NOTE | 2019-04-05 08:38 | PCM.DCSUM1 ---
<David Kevin - Last Filed: 04/05/19 09:08> Discharge Summary - Hospital Course Free Text/Narrative:: 59 y/o female presenting to the ER for confusion. She was accompanied by her who states she has been more confused. However, patient denies this. Per ER, she had horizontal nystagmus. CT head was negative for any intracranial hemorrhage. She was admitted for suspected TIA, confusion. She had no other neurological deficits on exam. MRI brain, neck were ordered however patient was not able to tolerate full length of MRI. MRI brain did not show any acute ischemic finding. She declined having the neck MRA performed. She was started on maintenance fluids. Next day, her symptoms had resolved. She was feeling better. She was requesting to be discharged, however, she left AMA minutes before being discharged. Likely she needed to smoke. Meclizine and zofran were sent to her pharmacy to take PRN. She was advised to follow-up with her PCP. - Discharge Data Discharge Date: 04/05/19 Discharge Disposition: Against Medical Advice 07 Condition: Stable - Referral to Home Health Primary Care Physician: Hardeep Montoya MD - Patient Summary/Data Consults: Consultations 04/04/19 13:07 PT Evaluation and Treatment [CONS] Routine - Patient Instructions Diet: Regular Diet as Tolerated Activity: As Tolerated Notify Provider of: Fever, Increased Pain, Nausea and/or Vomiting - Discharge Plan *PRESCRIPTION DRUG MONITORING PROGRAM REVIEWED*: Not Applicable *COPY OF PRESCRIPTION DRUG MONITORING REPORT IN PATIENT NATALY: Not Applicable Prescriptions/Med Rec: Meclizine [Antivert] 25 mg PO DAILY PRN #15 tab PRN Reason: Dizziness Ondansetron [Zofran ODT] 4 mg PO Q6H PRN #15 tab.dis PRN Reason: Nausea Home Medications: Home Meds Budesonide/Formoterol Fumarate [Symbicort 160-4.5 Mcg Inhaler] 2 puff IH BID 08/10 [History] DULoxetine [Cymbalta] 60 mg PO BID 06/28/17 [History] Hydrocodone/Acetaminophen [Hydrocodon-Acetaminophn 10-325] 1 tab PO BID PRN 08/10 [History] Levothyroxine [Synthroid] 50 mcg PO ACBREAKFAST 06/28/17 [History] Pantoprazole Sodium [Protonix] 20 mg PO DAILY 06/28/17 [History] Rosuvastatin Calcium 20 mg PO DAILY 06/28/17 [History] risperiDONE 2 mg PO BEDTIME 06/28/17 [History] Pregabalin [Lyrica] 1 tab PO BID 04/04/19 [History] metFORMIN [Glucophage XR] 750 mg PO DAILY 04/04/19 [History] Meclizine [Antivert] 25 mg PO DAILY PRN #15 tab 04/05/19 [Rx] Ondansetron [Zofran ODT] 4 mg PO Q6H PRN #15 tab.dis 04/05/19 [Rx] Patient Handouts: Transient Ischemic Attack, [id number] Referrals: Hardeep Montoya MD [Primary Care Provider] - 04/18/19 2:45 pm - Discharge Summary/Plan Comment DC Time >30 min.: No - Patient Data Vitals - Most Recent: Last Vital Signs Temp 36.9 C 04/05/19 08:00 Pulse 92 04/05/19 08:00 Resp 16 04/05/19 08:00 BP 128/75 04/05/19 08:00 Pulse Ox 95 04/05/19 08:00 Weight - Most Recent: 90.718 kg I&O - Last 24 hours: Intake & Output 04/04/19 04/05/19 04/05/19 22:59 06:59 14:59 Intake Total 1020 1818 Output Total 360 Balance 660 1818 Lab Results - Last 24 hrs: Laboratory Results - last 24 hr 04/04/19 04/04/19 04/04/19 Range/Units 10:58 10:58 11:42 WBC 12.71 H (4.0-11.0) K/uL RBC 5.16 (4.30-5.90) M/uL Hgb 16.4 H (12.0-16.0) g/dL Hct 46.2 H (36.0-46.0) % MCV 89.5 (80.0-98.0) fL MCH 31.8 (27.0-32.0) pg MCHC 35.5 (31.0-37.0) g/dL RDW Std Deviation 44.3 (28.0-62.0) fl RDW Coeff of Jenna 14 (11.0-15.0) % Plt Count 411 H (150-400) K/uL MPV 9.10 (7.40-12.00) fL Neut % (Auto) 66.9 (48.0-80.0) % Lymph % (Auto) 23.4 (16.0-40.0) % [place] % (Auto) 7.4 (0.0-15.0) % Eos % (Auto) 2.0 (0.0-7.0) % Baso % (Auto) 0.3 (0.0-1.5) % Neut # (Auto) 8.5 H (1.4-5.7) K/uL Lymph # (Auto) 3.0 H (0.6-2.4) K/uL [place] # (Auto) 0.9 H (0.0-0.8) K/uL Eos # (Auto) 0.3 (0.0-0.7) K/uL Baso # (Auto) 0.0 (0.0-0.1) K/uL Nucleated RBC % 0.0 /100WBC Nucleated RBCs # 0 K/uL INR 0.99 APTT 28.4 (18.6-31.3) SEC Sodium 136 (136-145) mmol/L Potassium 4.1 (3.5-5.1) mmol/L Chloride 100 (98-107) mmol/L Carbon Dioxide 26.9 (21.0-32.0) mmol/L BUN 20 H (7.0-18.0) mg/dL Creatinine 0.7 (0.6-1.0) mg/dL Est Cr Clr Drug Dosing 82.01 mL/min Estimated GFR (MDRD) > 60.0 ml/min Glucose 102 (74-106) mg/dL POC Glucose (60-110) mg/dL Calcium 9.7 (8.5-10.1) mg/dL Total Bilirubin 0.3 (0.2-1.0) mg/dL AST 16 (15-37) IU/L ALT 30 (14-63) IU/L Alkaline Phosphatase 103 (46-116) U/L Troponin I < 0.050 (0.000-0.056) ng/mL Total Protein 7.5 (6.4-8.2) g/dL Albumin 3.8 (3.4-5.0) g/dL Globulin 3.7 (2.6-4.0) g/dL Albumin/Globulin Ratio 1.0 (0.9-1.6) TSH 3rd Generation 2.70 (0.36-3.74) uIU/mL Urine Color Urine Appearance Urine pH (5.0-8.0) Ur Specific [place] (1.001-1.035) Urine Protein (NEGATIVE) mg/dL Urine Glucose (UA) (NEGATIVE) mg/dL Urine Ketones (NEGATIVE) mg/dL Urine Occult Blood (NEGATIVE) Urine Nitrite (NEGATIVE) Urine Bilirubin (NEGATIVE) Urine Urobilinogen (<2.0) EU/dL Ur Leukocyte Esterase (NEGATIVE) Ethyl Alcohol <3 mg/dL 04/04/19 04/04/19 04/05/19 Range/Units 16:00 18:19 06:15 WBC 12.77 H (4.0-11.0) K/uL RBC 5.04 (4.30-5.90) M/uL Hgb 15.5 (12.0-16.0) g/dL Hct 46.6 H (36.0-46.0) % MCV 92.5 (80.0-98.0) fL MCH 30.8 (27.0-32.0) pg MCHC 33.3 (31.0-37.0) g/dL RDW Std Deviation 46.4 (28.0-62.0) fl RDW Coeff of Jenna 14 (11.0-15.0) % Plt Count 400 (150-400) K/uL MPV 9.00 (7.40-12.00) fL Neut % (Auto) 74.6 (48.0-80.0) % Lymph % (Auto) 17.2 (16.0-40.0) % [place] % (Auto) 6.5 (0.0-15.0) % Eos % (Auto) 1.5 (0.0-7.0) % Baso % (Auto) 0.2 (0.0-1.5) % Neut # (Auto) 9.5 H (1.4-5.7) K/uL Lymph # (Auto) 2.2 (0.6-2.4) K/uL [place] # (Auto) 0.8 (0.0-0.8) K/uL Eos # (Auto) 0.2 (0.0-0.7) K/uL Baso # (Auto) 0.0 (0.0-0.1) K/uL Nucleated RBC % 0.0 /100WBC Nucleated RBCs # 0 K/uL INR APTT (18.6-31.3) SEC Sodium (136-145) mmol/L Potassium (3.5-5.1) mmol/L Chloride (98-107) mmol/L Carbon Dioxide (21.0-32.0) mmol/L BUN (7.0-18.0) mg/dL Creatinine (0.6-1.0) mg/dL Est Cr Clr Drug Dosing mL/min Estimated GFR (MDRD) ml/min Glucose (74-106) mg/dL POC Glucose 107 (60-110) mg/dL Calcium (8.5-10.1) mg/dL Total Bilirubin (0.2-1.0) mg/dL AST (15-37) IU/L ALT (14-63) IU/L Alkaline Phosphatase (46-116) U/L Troponin I (0.000-0.056) ng/mL Total Protein (6.4-8.2) g/dL Albumin (3.4-5.0) g/dL Globulin (2.6-4.0) g/dL Albumin/Globulin Ratio (0.9-1.6) TSH 3rd Generation (0.36-3.74) uIU/mL Urine Color YELLOW Urine Appearance CLEAR Urine pH 7.5 (5.0-8.0) Ur Specific [place] 1.015 (1.001-1.035) Urine Protein NEGATIVE (NEGATIVE) mg/dL Urine Glucose (UA) NEGATIVE (NEGATIVE) mg/dL Urine Ketones NEGATIVE (NEGATIVE) mg/dL Urine Occult Blood NEGATIVE (NEGATIVE) Urine Nitrite NEGATIVE (NEGATIVE) Urine Bilirubin NEGATIVE (NEGATIVE) Urine Urobilinogen 0.2 (<2.0) EU/dL Ur Leukocyte Esterase NEGATIVE (NEGATIVE) Ethyl Alcohol mg/dL 04/05/19 04/05/19 Range/Units 06:15 06:40 WBC (4.0-11.0) K/uL RBC (4.30-5.90) M/uL Hgb (12.0-16.0) g/dL Hct (36.0-46.0) % MCV (80.0-98.0) fL MCH (27.0-32.0) pg MCHC (31.0-37.0) g/dL RDW Std Deviation (28.0-62.0) fl RDW Coeff of Jenna (11.0-15.0) % Plt Count (150-400) K/uL MPV (7.40-12.00) fL Neut % (Auto) (48.0-80.0) % Lymph % (Auto) (16.0-40.0) % [place] % (Auto) (0.0-15.0) % Eos % (Auto) (0.0-7.0) % Baso % (Auto) (0.0-1.5) % Neut # (Auto) (1.4-5.7) K/uL Lymph # (Auto) (0.6-2.4) K/uL [place] # (Auto) (0.0-0.8) K/uL Eos # (Auto) (0.0-0.7) K/uL Baso # (Auto) (0.0-0.1) K/uL Nucleated RBC % /100WBC Nucleated RBCs # K/uL INR APTT (18.6-31.3) SEC Sodium 146 H (136-145) mmol/L Potassium 4.3 (3.5-5.1) mmol/L Chloride 108 H (98-107) mmol/L Carbon Dioxide 29.1 (21.0-32.0) mmol/L BUN 16 (7.0-18.0) mg/dL Creatinine 0.8 (0.6-1.0) mg/dL Est Cr Clr Drug Dosing 71.76 mL/min Estimated GFR (MDRD) > 60.0 ml/min Glucose 102 (74-106) mg/dL POC Glucose 121 H (60-110) mg/dL Calcium 9.3 (8.5-10.1) mg/dL Total Bilirubin (0.2-1.0) mg/dL AST (15-37) IU/L ALT (14-63) IU/L Alkaline Phosphatase (46-116) U/L Troponin I (0.000-0.056) ng/mL Total Protein (6.4-8.2) g/dL Albumin (3.4-5.0) g/dL Globulin (2.6-4.0) g/dL Albumin/Globulin Ratio (0.9-1.6) TSH 3rd Generation (0.36-3.74) uIU/mL Urine Color Urine Appearance Urine pH (5.0-8.0) Ur Specific [place] (1.001-1.035) Urine Protein (NEGATIVE) mg/dL Urine Glucose (UA) (NEGATIVE) mg/dL Urine Ketones (NEGATIVE) mg/dL Urine Occult Blood (NEGATIVE) Urine Nitrite (NEGATIVE) Urine Bilirubin (NEGATIVE) Urine Urobilinogen (<2.0) EU/dL Ur Leukocyte Esterase (NEGATIVE) Ethyl Alcohol mg/dL LIBBY Results - Last 24 hrs: Microbiology 04/04/19 15:09 Influenza Type A Antigen Screen - Final Nasopharyngeal Swab NEGATIVE INFLUENZA A VIRUS AG REFERENCE RANGE: NEGATIVE Influenza Type B Antigen Screen - Final NEGATIVE INFLUENZA B VIRUS AG REFERENCE RANGE: NEGATIVE Med Orders - Current: Current Medications Acetaminophen (Tylenol) 650 mg PO Q4H PRN PRN Reason: Pain (Mild 1-3)/fever Albuterol (Proventil Neb Soln) 2.5 mg NEB Q2H PRN PRN Reason: Shortness Of Breath/wheezing Enoxaparin Sodium (Lovenox) 40 mg SUBCUT Q24H PENDING SALE TO [facility] Last Admin: 04/04/19 13:50 Dose: 40 mg Ibuprofen (Motrin) 600 mg PO Q6H PRN PRN Reason: Pain (mild 1-3) Nicotine (Habitrol) 21 mg TRDERM DAILY PENDING SALE TO [facility] Last Admin: 04/04/19 13:48 Dose: 21 mg Ondansetron HCl (Zofran Odt) 4 mg PO Q4H PRN PRN Reason: nausea, able to take PO Ondansetron HCl (Zofran) 4 mg IVPUSH Q4H PRN PRN Reason: Nausea Last Admin: 04/04/19 15:12 Dose: 4 mg Budesonide/Formoterol 160-4.5 Mcg/Puff 6 Gm Inhaler 0 each INH BID PENDING SALE TO [facility] Last Admin: 04/04/19 21:16 Dose: Not Given Duloxetine 60 Mg Cap 1 each PO BID PENDING SALE TO [facility] Last Admin: 04/04/19 21:16 Dose: 1 each Levothyroxine 50 Mcg (Tab) 1 each PO ACBREAKFAST LUIS Last Admin: 04/05/19 07:02 Dose: Not Given Pantoprazole Sodium ([Protonix] 20 Mg) 1 each PO DAILY LUIS Risperidone 2 Mg Tab 1 each PO BEDTIME LUIS Last Admin: 04/04/19 21:15 Dose: 1 each Rosuvastatin 20 Mg (Tab) 1 each PO DAILY LUIS Sodium Chloride (Saline Flush) 10 ml FLUSH ASDIRECTED PRN PRN Reason: Keep Vein Open Last Admin: 04/04/19 11:09 Dose: 10 ml Sodium Chloride (Saline Flush) 2.5 ml FLUSH ASDIRECTED PRN PRN Reason: Keep Vein Open Last Admin: 04/04/19 11:09 Dose: 2.5 ml Temazepam (Restoril) 15 mg PO BEDTIME PRN PRN Reason: Insomnia Discontinued Medications Gadobenate Dimeglumine (Multihance) 20 ml IVPUSH ONETIME STA Stop: 04/04/19 14:33 Last Admin: 04/04/19 16:11 Dose: Not Given Sodium Chloride (Normal Saline) 1,000 mls @ 150 mls/hr IV CONTINUOUS LUIS Stop: 04/05/19 19:54 Last Admin: 04/04/19 21:13 Dose: 150 mls/hr Meclizine HCl (Antivert) 25 mg PO ONETIME ONE Stop: 04/04/19 10:57 Last Admin: 04/04/19 11:09 Dose: 25 mg Sodium Chloride (Normal Saline) 10 ml IV ASDIRECTED PRN PRN Reason: IV Use <Mike,Hooria - Last Filed: 04/05/19 20:16> Discharge Summary - Hospital Course Free Text/Narrative:: Patient left AMA , I agree with the residents note unless specified in my note - Referral to Home Health Primary Care Physician: Hardeep Montoya MD - Patient Summary/Data Consults: Consultations 04/04/19 13:07 PT Evaluation and Treatment [CONS] Routine - Patient Data Vitals - Most Recent: Last Vital Signs Temp 36.9 C 04/05/19 08:00 Pulse 92 04/05/19 08:00 Resp 16 04/05/19 08:00 BP 128/75 04/05/19 08:00 Pulse Ox 95 04/05/19 08:00 I&O - Last 24 hours: Intake & Output 04/05/19 04/05/19 04/05/19 06:59 14:59 22:59 Intake Total 1818 Balance 1818 Lab Results - Last 24 hrs: Laboratory Results - last 24 hr 04/05/19 04/05/19 04/05/19 Range/Units 06:15 06:15 06:40 WBC 12.77 H (4.0-11.0) K/uL RBC 5.04 (4.30-5.90) M/uL Hgb 15.5 (12.0-16.0) g/dL Hct 46.6 H (36.0-46.0) % MCV 92.5 (80.0-98.0) fL MCH 30.8 (27.0-32.0) pg MCHC 33.3 (31.0-37.0) g/dL RDW Std Deviation 46.4 (28.0-62.0) fl RDW Coeff of Jenna 14 (11.0-15.0) % Plt Count 400 (150-400) K/uL MPV 9.00 (7.40-12.00) fL Neut % (Auto) 74.6 (48.0-80.0) % Lymph % (Auto) 17.2 (16.0-40.0) % [place] % (Auto) 6.5 (0.0-15.0) % Eos % (Auto) 1.5 (0.0-7.0) % Baso % (Auto) 0.2 (0.0-1.5) % Neut # (Auto) 9.5 H (1.4-5.7) K/uL Lymph # (Auto) 2.2 (0.6-2.4) K/uL [place] # (Auto) 0.8 (0.0-0.8) K/uL Eos # (Auto) 0.2 (0.0-0.7) K/uL Baso # (Auto) 0.0 (0.0-0.1) K/uL Nucleated RBC % 0.0 /100WBC Nucleated RBCs # 0 K/uL Sodium 146 H (136-145) mmol/L Potassium 4.3 (3.5-5.1) mmol/L Chloride 108 H (98-107) mmol/L Carbon Dioxide 29.1 (21.0-32.0) mmol/L BUN 16 (7.0-18.0) mg/dL Creatinine 0.8 (0.6-1.0) mg/dL Est Cr Clr Drug Dosing 71.76 mL/min Estimated GFR (MDRD) > 60.0 ml/min Glucose 102 (74-106) mg/dL POC Glucose 121 H (60-110) mg/dL Calcium 9.3 (8.5-10.1) mg/dL LIBBY Results - Last 24 hrs: Microbiology 04/04/19 15:09 Influenza Type A Antigen Screen - Final Nasopharyngeal Swab NEGATIVE INFLUENZA A VIRUS AG REFERENCE RANGE: NEGATIVE Influenza Type B Antigen Screen - Final NEGATIVE INFLUENZA B VIRUS AG REFERENCE RANGE: NEGATIVE Med Orders - Current: Current Medications Discontinued Medications Acetaminophen (Tylenol) 650 mg PO Q4H PRN PRN Reason: Pain (Mild 1-3)/fever Albuterol (Proventil Neb Soln) 2.5 mg NEB Q2H PRN PRN Reason: Shortness Of Breath/wheezing Enoxaparin Sodium (Lovenox) 40 mg SUBCUT Q24H PENDING SALE TO [facility] Last Admin: 04/04/19 13:50 Dose: 40 mg Gadobenate Dimeglumine (Multihance) 20 ml IVPUSH ONETIME STA Stop: 04/04/19 14:33 Last Admin: 04/04/19 16:11 Dose: Not Given Sodium Chloride (Normal Saline) 1,000 mls @ 150 mls/hr IV CONTINUOUS LUIS Stop: 04/05/19 19:54 Last Admin: 04/04/19 21:13 Dose: 150 mls/hr Ibuprofen (Motrin) 600 mg PO Q6H PRN PRN Reason: Pain (mild 1-3) Meclizine HCl (Antivert) 25 mg PO ONETIME ONE Stop: 04/04/19 10:57 Last Admin: 04/04/19 11:09 Dose: 25 mg Nicotine (Habitrol) 21 mg TRDERM DAILY PENDING SALE TO [facility] Last Admin: 04/04/19 13:48 Dose: 21 mg Ondansetron HCl (Zofran Odt) 4 mg PO Q4H PRN PRN Reason: nausea, able to take PO Ondansetron HCl (Zofran) 4 mg IVPUSH Q4H PRN PRN Reason: Nausea Last Admin: 04/04/19 15:12 Dose: 4 mg Budesonide/Formoterol 160-4.5 Mcg/Puff 6 Gm Inhaler 0 each INH BID PENDING SALE TO [facility] Last Admin: 04/04/19 21:16 Dose: Not Given Duloxetine 60 Mg Cap 1 each PO BID PENDING SALE TO [facility] Last Admin: 04/04/19 21:16 Dose: 1 each Levothyroxine 50 Mcg (Tab) 1 each PO ACBREAKFAST PENDING SALE TO [facility] Last Admin: 04/05/19 07:02 Dose: Not Given Pantoprazole Sodium ([Protonix] 20 Mg) 1 each PO DAILY LUIS Risperidone 2 Mg Tab 1 each PO BEDTIME PENDING SALE TO [facility] Last Admin: 04/04/19 21:15 Dose: 1 each Rosuvastatin 20 Mg (Tab) 1 each PO DAILY LUIS Sodium Chloride (Saline Flush) 10 ml FLUSH ASDIRECTED PRN PRN Reason: Keep Vein Open Last Admin: 04/04/19 11:09 Dose: 10 ml Sodium Chloride (Saline Flush) 2.5 ml FLUSH ASDIRECTED PRN PRN Reason: Keep Vein Open Last Admin: 04/04/19 11:09 Dose: 2.5 ml Sodium Chloride (Normal Saline) 10 ml IV ASDIRECTED PRN PRN Reason: IV Use Temazepam (Restoril) 15 mg PO BEDTIME PRN PRN Reason: Insomnia
[2019-04-05] MEDS ORDERED: Rosuvastatin 20 MG Tab PO SCH (09:00)
[2019-04-05] MEDS ORDERED: Pantoprazole Sodium [Protonix] 20 MG PO SCH (09:00)
== END 2019-04-05 08:13 | disposition left against medical advice (07) ==
LOC: MW.ED 10:29 → MW.MS 12:50
PROVIDERS: ADMIT Student in an Organized Health Care Education/Training Program; ATTEND Student in an Organized Health Care Education/Training Program
DX: R11.0 Nausea (principal); R20.0 Anesthesia of skin; E78.5 Hyperlipidemia, unspecified; E78.00 Pure hypercholesterolemia, unspecified; R73.03 Prediabetes; G89.29 Other chronic pain; M54.9 Dorsalgia, unspecified; J44.9 Chronic obstructive pulmonary disease, unspecified; K21.9 Gastro-esophageal reflux disease without esophagitis; F41.9 Anxiety disorder, unspecified; E03.9 Hypothyroidism, unspecified; F32.9 Major depressive disorder, single episode, unspecified; F17.210 Nicotine dependence, cigarettes, uncomplicated; Z88.0 Allergy status to penicillin; Z79.84 Long term (current) use of oral hypoglycemic drugs; Z79.51 Long term (current) use of inhaled steroids; Z79.899 Other long term (current) drug therapy
CPT/HCPCS: 36415; 70450; 70544; 80048; 80053; 80307; 81003; 82962; 84443; 84484; 85025; 85610; 85730; 87804; 93005; 96361; 96372; 96374; 99285; A9270; G0378; J1650; J2405; J7030; 99284

== ENCOUNTER 2021-01-22 11:15 | Day surgery (SDC) | payer MEDICAID ==
--- NOTE | 2021-01-22 10:50 | PCM.PREANE ---
Preanesthetic Assessment - Procedure Proposed Procedure: Incisional hernia repair - Anesthesia/Transfusion/Family Hx Anesthesia History: Prior Anesthesia Without Reaction Family History of Anesthesia Reaction: No Transfusion History: No Prior Transfusion(s) Intubation History: Unknown - Review of Systems General: No Symptoms Pulmonary: No Symptoms (Smoker, COPD with BID MDI) Cardiovascular: No Symptoms (HLD) Gastrointestinal: No Symptoms (h/o colon polyps, GERD) Neurological: No Symptoms (Chronic back pain) Other: Reports: None, Diabetes (AODM on metformin), Liver Problems (Fatty liver), Thyroid Problems (Hypothyroid) - Physical Assessment NPO Status Date: 01/22/21 NPO Status Time: 00:05 Height: 5 ft 6 in Weight: 92.533 kg ASA Class: 3 Mental Status: Alert & Oriented x3 Airway Class: Mallampati = 3 Dentition: Reports: Normal Dentition Thyro-Mental Finger Breadths: 3 Mouth Opening Finger Breadths: 3 ROM/Head Extension: Full Lungs: Clear to Auscultation, Normal Respiratory Effort Cardiovascular: Regular Rate, Regular Rhythm - Allergies Allergies/Adverse Reactions: Allergies Allergy/AdvReac Type Severity Reaction Status Date / Time Penicillins Allergy Rash Verified 01/16/21 13:23 - Acknowledgements Anesthesia Type Planned: General Anesthesia Pt an Appropriate Candidate for the Planned Anesthesia: Yes Alternatives and Risks of Anesthesia Discussed w Pt/Guardian: Yes Pt/Guardian Understands and Agrees with Anesthesia Plan: Yes PreAnesthesia Questionnaire HEENT History: Reports: Other (See Below) Other HEENT History: wears glasses, has upper partial permanent retainer Cardiovascular History: Reports: High Cholesterol Respiratory History: Reports: COPD Other Respiratory History: uses Symbicort inhaler BID Gastrointestinal History: Reports: Colon Polyp, GERD, Other (See Below) Other Gastrointestinal History: fatty liver, just diagnosed with a ventral hernia Genitourinary History: Reports: None CAR PACKER History: Reports: None Musculoskeletal History: Reports: Back Pain, Chronic, Other (See Below) Neurological History: Reports: None Psychiatric History: Reports: Anxiety, Depression, Suicide Attempt Endocrine/Metabolic History: Reports: Hypothyroidism Other Endocrine/Metabolic History: prediabetic Hematologic History: Reports: None Immunologic History: Reports: None Oncologic (Cancer) History: Reports: None Dermatologic History: Reports: None - Infectious Disease History Infectious Disease History: Reports: None - Past Surgical History GI Surgical History: Reports: Cholecystectomy Musculoskeletal Surgical History: Reports: None - SUBSTANCE USE Tobacco Use Status *Q: Current Every Day Tobacco User Tobacco Use Within Last Twelve Months: Cigarettes - HOME MEDS Home Medications: Home Meds Budesonide/Formoterol Fumarate [Symbicort 160-4.5 Mcg Inhaler] 2 puff IH BID 06/28/17 [History] DULoxetine [Cymbalta] 120 mg PO DAILY 06/28/17 [History] Levothyroxine [Synthroid] 50 mcg PO ACBREAKFAST 06/28/17 [History] Pantoprazole Sodium [Protonix] 20 mg PO DAILY 06/28/17 [History] Rosuvastatin Calcium 20 mg PO DAILY 06/28/17 [History] metFORMIN [Glucophage XR] 500 mg PO WITHDINNER 04/04/19 [History] Hydrocodone/Acetaminophen [HYDROcodone-Acetaminophen 10-325 MG] 1 tab PO ASDIRECTED PRN 01/16/21 [History] clonazePAM [Clonazepam] 1 mg PO ASDIRECTED PRN 01/16/21 [History] risperiDONE [Risperidone] 2 mg PO BEDTIME PRN 01/16/21 [History] - CURRENT (IN HOUSE) MEDS Current Meds: Current Medications Lactated Ringer's (Ringers, Lactated) 1,000 mls @ 125 mls/hr IV ASDIRECTED LUIS Cefazolin Sodium/Dextrose 2 gm (/ Premix) 50 mls @ 100 mls/hr IV ONETIME ONE Stop: 01/22/21 11:54 Sodium Chloride (Sodium Chloride 0.9% 2.5 Ml Syringe) 2.5 ml FLUSH ASDIRECTED PRN PRN Reason: Keep Vein Open Sodium Chloride (Sodium Chloride 0.9% 20 Ml Sdv) 10 ml IV ASDIRECTED PRN PRN Reason: IV Use Sodium Chloride (Sodium Chloride 0.9% 10 Ml Syringe) 10 ml FLUSH ASDIRECTED PRN PRN Reason: Keep Vein Open Discontinued Medications Bupivacaine HCl (Bupivacaine 0.5% 30 Ml Sdv) Confirm Administered Dose 30 ml .ROUTE .STK-MED ONE Stop: 01/22/21 10:30 Octyl Cyanoacrylate (Octyl 2-Cyanoacrylate 1 Tube) Confirm Administered Dose 1 applic .ROUTE .STK-MED ONE Stop: 01/22/21 10:30
[~2021-01-22 11:15] MED LIST changes: +Bupivacaine 0.5% 30 ML SDV ONE; +Glycopyrrolate 0.2 MG/ML SDV ONE; +Ketorolac 30 MG/ML SDV ONE; +Midazolam 1 MG/ML 2 ML SDV ONE; +Octyl 2-Cyanoacrylate 1 Tube ONE; +Ondansetron 4 MG/2 ML SDV ONE; +Sodium Chloride 0.9% 20 ML SDV IV PRN
[2021-01-22] MEDS ORDERED: ceFAZolin 2 GM in Premix Bag 1 BAG IV ONE (11:25)
[2021-01-22] MEDS ORDERED: Water For Injection, Sterile 20 ML ONE (11:56)
[2021-01-22] MEDS ORDERED: ceFAZolin 1 GM Vial ONE (11:56)
--- NOTE | 2021-01-22 13:00 | PCM.OPNOTE ---
- General Post-Op/Procedure Note Date of Surgery/Procedure: 01/22/21 Operative Procedure(s): Epigastric and umbilical hernia repair Findings: Epigastric hernia 2mm, supraumbilical hernia 1 x 2 cm Pre Op Diagnosis: Incisional hernia Post-Op Diagnosis: Epigastric hernia, umbilical hernia Anesthesia Technique: General LMA Primary Surgeon: Jenny Nascimento Fluid Replacement, Intraop: 700 EBL in mLs: 2 Condition: Good
--- NOTE | 2021-01-22 13:01 | PCM.POSTAN ---
POST ANESTHESIA ASSESSMENT - MENTAL STATUS Mental Status: Alert - VITAL SIGNS Vital Signs: Last Vital Signs Temp 36.5 C 01/22/21 11:33 Pulse 79 01/22/21 11:33 Resp 14 01/22/21 11:33 BP 139/81 01/22/21 11:33 Pulse Ox 95 01/22/21 11:33 - RESPIRATORY Respiratory Status: Respiratory Rate WNL - CARDIOVASCULAR CV Status: Pulse Rate WNL - GASTROINTESTINAL GI Status: No Symptoms - POST OP HYDRATION Hydration Status: Adequate & Stable
[2021-01-22] MEDS ORDERED: Haloperidol 1 MG Tab PO ONE (13:05)
--- NOTE | 2021-01-22 13:10 | PCM48HPAN ---
Post Anesthesia Note - EVALUATION WITHIN 48HRS OF ANESTHETIC Vital Signs in Normal Range: Yes Patient Participated in Evaluation: Yes Respiratory Function Stable: Yes Airway Patent: Yes Cardiovascular Function Stable: Yes Hydration Status Stable: Yes Pain Control Satisfactory: Yes Nausea and Vomiting Control Satisfactory: Yes Mental Status Recovered: Yes (Slightly agitated. Haldol [address] Nascimento in PACU. No pain/nausea) Vital Signs: Last Vital Signs Temp 36.5 C 01/22/21 11:33 Pulse 79 01/22/21 11:33 Resp 14 01/22/21 11:33 BP 139/81 01/22/21 11:33 Pulse Ox 95 01/22/21 11:33
--- NOTE | 2021-01-22 14:26 | OR ---
SURGEON: JENNY NASCIMENTO MD DATE OF PROCEDURE: 01/22/2021 PREOPERATIVE DIAGNOSIS: Incisional hernia. POSTOPERATIVE DIAGNOSES: 1. Umbilical hernia. 2. Epigastric hernia. PROCEDURES PERFORMED: Epigastric and umbilical hernia repair. PRIMARY SURGEON: Jenny Nascimento MD ANESTHESIA: General LMA. FLUIDS: 700 mL crystalloid. ESTIMATED BLOOD LOSS: 2 mL. FINDINGS: 1. 2 mm epigastric abdominal hernia containing fat. 2. Supraumbilical hernia measuring 1 x 2 cm in size. Reducible fat contained within this. COMPLICATIONS: None. INDICATIONS: The patient is a 61-year-old female who came to see me in clinic with complaints of epigastric abdominal pain. She had had a previous CT scan which showed an epigastric hernia. A repeat CT scan showed a stable size, but the patient states that when it spontaneously reduces, it can be painful. The CT scan also noted a supraumbilical hernia. In the preoperative area, I visited with the patient regarding these two hernias. The decision was made to repair both of them at the same time. I explained the procedures, expected perioperative course, the lifting restrictions afterwards, and the risks of the procedure including bleeding, infection, or damage to surrounding structures. She verbalized understanding and wishes to proceed. PROCEDURE IN DETAIL: The patient was brought in to the OR and placed on the OR table in supine position. A time-out was completed verifying the patient's name, age, date of , allergies, and procedure to be performed. General LMA anesthesia was induced. The abdomen was prepped and draped in usual standard fashion. The epigastric hernia was addressed first. This was difficult to feel on clinical exam. The CT scan showed that it was 10 cm from the xiphoid process. Using a ruler, I measured 10 cm down from the xiphoid process. An upper midline incision was made using a 15-blade. Using cautery, I dissected down to the level of subcutaneous fat. I then bluntly dissected the fat away down to the level of the fascia. At the level of the fascia, I could feel a small defect. This contained fat. I was unable to reduce this fat back into the abdomen. This fat was grasped with a grasper and transected at the fascial defect using electrocautery. The fascial defect was then measured. It measured 2 mm in size. It was closed using interrupted 0 Ethibond sutures. Once this was done, I turned my attention to the supraumbilical hernia site. I anesthetized both sites with 0.5% Marcaine plain. A 15-blade was used to make an incision along the supraumbilical fold. Cautery was used to dissect down to the level of subcutaneous fat. I bluntly dissected down to the fascia. I encountered a hernia sac. I dissected bluntly around this using a hemostat and finger dissection. I then entered the hernia sac using a Metzenbaum scissors. The hernia sac contained preperitoneal fat. This was able to be reduced back into the abdomen. The hernia sac was then transected down to the level of fascia. The fascial defect measured 2 cm wide x 1 cm high. I decided to close this primarily with sutures. Interrupted 0 Ethibond sutures were used to close the defect. A Valsalva maneuver was performed and both hernia sites where the repairs were performed appeared to be intact. I irrigated both sites and inspected them for hemostasis. Hemostasis was achieved with electrocautery. I then closed the subcutaneous fat at both sites with interrupted layers of 3-0 Vicryl suture. I then closed the skin at both sites with running 4-0 Monocryl sutures. Dermabond and sterile dressings were applied. The patient tolerated the procedure well, was extubated, and taken to PACU in stable condition. All counts were complete and correct at the end of the case. NEVAEH CASTELLON /[id number]
== END 2021-01-22 14:38 | disposition home or self-care (01) ==
LOC: MW.SDS 11:15
PROVIDERS: ATTEND Surgery
DX: K43.9 Ventral hernia without obstruction or gangrene (principal); J44.9 Chronic obstructive pulmonary disease, unspecified; F41.8 Other specified anxiety disorders; E78.00 Pure hypercholesterolemia, unspecified; E03.9 Hypothyroidism, unspecified; F17.210 Nicotine dependence, cigarettes, uncomplicated; E78.5 Hyperlipidemia, unspecified; E11.9 Type 2 diabetes mellitus without complications; Z79.84 Long term (current) use of oral hypoglycemic drugs; Z90.49 Acquired absence of other specified parts of digestive tract; Z88.0 Allergy status to penicillin; Z79.899 Other long term (current) drug therapy; Z98.890 Other specified postprocedural states
CPT/HCPCS: 49560; A9270; J0690; J1885; J2250; J2370; J2405; J2704; J3010; J3490; J7120; 00750

== ENCOUNTER → 2021-04-18 | Day surgery (SDC) | payer BC, MEDICAID | LOC: MW.SDS 09:10 | PROVIDERS: ATTEND Obstetrics & Gynecology | DX: N39.46 Mixed incontinence (principal); Z53.09 Procedure and treatment not carried out because of other contraindication | CPT/HCPCS: 82947 ==

== ENCOUNTER 2024-01-02 10:09 | Emergency (ER) | payer BC, MEDICAID ==
[2024-01-02] MEDS: Acetaminophen/HYDROcodone 325-10 MG Tab PO ONE (10:47)
== END 2024-01-02 10:50 | disposition home or self-care (01) ==
LOC: MW.ED 10:09
DX: Z76.0 Encounter for issue of repeat prescription (principal); E78.00 Pure hypercholesterolemia, unspecified; J44.9 Chronic obstructive pulmonary disease, unspecified; K21.9 Gastro-esophageal reflux disease without esophagitis; E66.9 Obesity, unspecified; E03.9 Hypothyroidism, unspecified; F17.210 Nicotine dependence, cigarettes, uncomplicated; Z90.49 Acquired absence of other specified parts of digestive tract; Z75.8 Other problems related to medical facilities and other health care; Z79.899 Other long term (current) drug therapy; Z79.890 Hormone replacement therapy; Z79.84 Long term (current) use of oral hypoglycemic drugs; Z88.0 Allergy status to penicillin; Z68.29 Body mass index [BMI] 29.0-29.9, adult
CPT/HCPCS: 99281; A9270; 99283

== ENCOUNTER 2024-04-16 04:54 | Emergency (ER) | payer BC ==
[2024-04-16 05:29] LABS: APPEARANCE,URINE CLEAR; BILIRUBIN,URINE NEGATIVE (NEGATIVE); COLOR,URINE YELLOW; GLUCOSE,URINE NEGATIVE (NEGATIVE); KETONES,URINE NEGATIVE (NEGATIVE); LEUKOCYTE ESTERASE,URINE NEGATIVE (NEGATIVE); NITRITE,URINE NEGATIVE (NEGATIVE); OCCULT BLOOD,URINE NEGATIVE (NEGATIVE); PROTEIN,URINE NEGATIVE (NEGATIVE); UROBILINOGEN,URINE 0.2 EU/dL (<2.0)
[2024-04-16 05:38] LABS: BACTERIA,URINE RARE (NEGATIVE); EPITHELIAL CELLS,URINE MODERATE (NONE-FEW); RBC,URINE 0-1 (0-2/HPF); WBC,URINE 0-1 (0-5/HPF)
[2024-04-16] MEDS: Ondansetron 4 MG/2 ML SDV IVPUSH ONE (05:43)
[2024-04-16] MEDS: Sodium Chloride 0.9% 2.5 ML Syringe FLUSH PRN (05:43)
[2024-04-16] MEDS: Ketorolac 30 MG/ML SDV IVPUSH ONE (05:43)
[2024-04-16] MEDS: Sodium Chloride 0.9% 10 ML Syringe FLUSH PRN (05:43)
[2024-04-16 05:49] LABS: BASOPHILS ABSOLUTE AUTO 0.04 K/uL (0.00-0.20); BASOPHILS PERCENT AUTO 0.4 % (0.0-1.0); EOSINOPHILS ABSOLUTE AUTO 0.13 K/uL (0.00-0.45); EOSINOPHILS PERCENT AUTO 1.3 % (0.0-6.0); HEMATOCRIT 44.6 % (37.0-47.0); IMMATURE GRAN ABSOLUTE AUTO 0.02 K/uL (0.00-0.05); IMMATURE GRAN PERCENT AUTO 0.2 % (0.0-0.4); LYMPHOCYTES ABSOLUTE AUTO 1.73 K/uL (1.00-4.80); MEAN CORPUSCULAR HGB CONC 35.9 g/dL (32.0-36.0); MEAN PLATELET VOLUME 8.5 fL (9.4-12.3); MONOCYTES ABSOLUTE AUTO 0.68 K/uL (0.00-0.80); MONOCYTES PERCENT AUTO 7.1 % (0.0-8.0); NEUTROPHILS ABSOLUTE AUTO 7.03 K/uL (1.80-7.70); PLATELET COUNT,PLT 348 K/uL (150-400); RED BLOOD CELL COUNT 4.85 M/uL (4.10-5.30); WHITE BLOOD CELL COUNT,WBC 9.63 K/uL (3.9-11.3)
[2024-04-16 06:17] LABS: ALBUMIN 3.6 g/dL (3.4-5.0); BILIRUBIN TOTAL 0.4 mg/dL (0.2-1.0); CALCIUM 9.5 mg/dL (8.5-10.1); CARBON DIOXIDE,CO2 24.3 mmol/L (21.0-32.0); CREATININE 0.7 mg/dL (0.6-1.0); EST CRCL DRUG DOSING (CG) 77.01 mL/min; POTASSIUM,K 3.4 mmol/L (3.5-5.1); PROTEIN TOTAL,TP 7.3 g/dL (6.4-8.2)
== END 2024-04-16 06:53 | disposition home or self-care (01) ==
LOC: MW.ED 04:54
DX: R10.9 Unspecified abdominal pain (principal); E78.00 Pure hypercholesterolemia, unspecified; J44.9 Chronic obstructive pulmonary disease, unspecified; E03.9 Hypothyroidism, unspecified; Z88.0 Allergy status to penicillin; Z79.899 Other long term (current) drug therapy; Z79.84 Long term (current) use of oral hypoglycemic drugs; Z79.890 Hormone replacement therapy; Z90.49 Acquired absence of other specified parts of digestive tract
CPT/HCPCS: 36415; 74176; 80053; 81001; 83690; 85025; 96374; 96375; 99284; J1885; J2405